=== PATIENT | female | born 1935 | race Caucasian/White ===

== ENCOUNTER 2018-06-19 03:32 | Outpatient (CLI) | payer MEDICARE ==
[~2018-06-19] VITALS: Ht 165.1 cm; Wt 60.8 kg
[2018-06-19] VITALS (10 sets, daily range): BP systolic 105–204; BP diastolic 53–100; BMI 22.3
--- NOTE | ~2018-06-19 | HEMODYNAMI ---
PATIENT:HONORIO OSORIO MEDICAL RECORD: [id number] : 35 LOCATION[facility] [id number] ADMISSION DATE: 06/19/18 Generatedon:06/20/201810:50 Patient name: HONORIO OSORIO Patient #: [id number] SSN: : 1935 Date of study: 06/20/2018 Page: Of Hemodynamic Procedure Report Patient Data Patient Demographics Procedure consent was obtained First Name: HONORIO Gender: Female Last Name: JO : 1935 [facility] Initial: M Age: 82 year(s) Patient #: [id number] Race: Additional ID: [id number] Contact details [address]: [address] [place] [address] State: [place] City: [place] Zip code: [address] Past Medical History Allergies Allergen Reaction Date Comments Reported Amoxicillin 06/19/2018 Other allergy 06/20/2018 Amoxicillin Admission Admission Data Admission Date: 06/19/2018 Admission Time: 5:54 Room #: D.2114 Lab Results Lab Result Date: 06/19/2018 Lab Result Time: 0:00 Biochemistry Name Units Result Min Max BUN mg/dl 26 --(----)-* 7 18 Creatinine mg/dl 1 --(--*-)-- 0.6 1.3 CBC Name Units Result Min Max Hemoglobin g/dl 14.1 --(*---)-- 13.5 17.5 Procedure Procedure Types Cath Procedure PCI Procedure Coronary Stent Coronary Stent Initial Coronary Stent Additional Procedure Description Procedure Date Procedure Date: 06/20/2018 Procedure Start Time: 10:36 Procedure End Time: 10:49 Procedure Staff Name Function Joseph Jaime MD Performing Physician Ritesh Pleitez RT Monitor Zenon Cross RN Nurse Eliza Pena RT Scrub Procedure Data Cath Procedure Fluoroscopy Diagnostic fluoroscopy Total fluoroscopy Time: 2.8 time: 2.8 min min Diagnostic fluoroscopy Total fluoroscopy dose: 296 dose: 296 mGy mGy Contrast Material Contrast Material Type Amount (ml) Isovue 300 44 Entry Location Entry Primary Successful Side Size Upsize Upsize Entry Closure Succes sful Closure Location (Fr) 1 (Fr) 2 (Fr) Remarks Device Remarks Femoral Right 6 Fr Exoseal artery Short Estimated blood loss: 10 ml Procedure Complications No complications Procedure Medications Medication Administration Route Dosage 0.9% NaCl I.V. 100 ml/hr Oxygen etCO2 Nasal cannula 2 l/min Heparin Flush Bag added to field 2 bags (1000units/500ml NS) Lidocaine 2% added to field 20 Benadryl I.V. 50 mg Versed I.V. 1 mg Fentanyl I.V. 50 mcg Heparin Bolus I.V. 4000 units Hemodynamics Rest HGB: 14.1 (g/dl) Heart Rate: 66 (bpm) Snapshots Pre Cath Intra NCS Post Cath Vital Signs Time Heart Resp SPO2 etCO2 NIBP (mmHg) Rhythm Pain Sedation Rate (ipm) (%) (mmHg) Status Level (bpm) 10:22:07 33 10 100 34.8 168/80(129) NSR 0 (11) 10(A) , No pain 10:26:28 39 16 100 34 177/77(141) NSR 0 (11) 10(A) , No pain 10:30:54 37 12 100 34 157/70(131) NSR 0 (11) 10(A) , No pain 10:35:08 71 16 100 34 163/83(142) NSR 0 (11) 10(A) , No pain 10:39:24 74 11 100 36.3 159/80(130) NSR 0 (11) 10(A) , No pain 10:43:40 76 12 100 35.5 149/79(117) NSR 0 (11) 10(A) , No pain 10:47:54 72 9 100 39.3 158/76(130) NSR 0 (11) 10(A) , No pain Medications Time Medication Route Dose Verified Delivered Reason Notes Effectiveness by by 10:26:03 0.9% NaCl I.V. 100 Zenon Zenon Per physician ml/hr Tay Cross RN RN 10:26:14 Oxygen etCO2 2 Zenon Zenon Per physician Nasal l/min Tay Cross cannula RN RN 10:26:31 Heparin Flush added 2 Zenon Zenon used for Bag to bags Tay Cross procedure (1000units/500ml field RN RN NS) 10:26:43 Lidocaine 2% added 20ml Zenon Zenon for local to vial Tay Cross anesthetic field POLANCO RN 10:33:00 Benadryl I.V. 50 mg Zenon Zenon Per physician Tay Cross RN RN 10:34:38 Versed I.V. 1 mg Zenon Zenon for sedation Tay Cross RN, RN 10:34:46 Fentanyl I.V. 50 Zenon Zenon for sedation mcg Tay Cross RN, RN 10:37:48 Heparin Bolus I.V. 4000 Zenon Zenon for units Tay Cross anticoagulation RN channel director Log Time Note 9:40:19 Zenon Cross RN sent for patient. Start room use. 9:43:09 Time tracking: Regular hours (M-F 7:00 - 5:00) 9:43:14 Plan of Care:Hemodynamics will remain stable., Cardiac rhythm will remain stable., Comfort level will be maintained., Respiratory function will remain adequate., Patient/ family verbilizes understanding of procedure., Procedure tolerated without complication., Recovers from procedure without complications.. 10:14:01 Patient received from Med II to CCL 2 Alert and oriented. Tansferred to table in Supine position. 10:14:02 Warm blankets applied, and dinesh hugger turned on for patient comfort. 10:14:02 Correct patient and procedure confirmed by team. 10:14:03 Signed procedure consent form obtained from patient. 10:14:05 ECG and BP/O2 sat monitors applied to patient. 10:20:59 Vital chart was started 10:23:54 Baseline sample Acquired. 10:23:59 Rhythm: sinus rhythm 10:26:03 0.9% NaCl 100 ml/hr I.V. was administered by Zenon Cross RN; Per physician; 10:26:14 Oxygen 2 l/min etCO2 Nasal cannula was administered by Zenon Cross RN; Per physician; 10:26:31 Heparin Flush Bag (1000units/500ml NS) 2 bags added to field was administered by Zenon Cross RN; used for procedure; 10:26:43 Lidocaine 2% 20ml vial added to field was administered by Zenon Cross RN; for local anesthetic; 10:27:38 Full Disclosure recording started 10:28:02 H&P Date Dictated: 06/19/2018 Within 30 days and on chart.. 10:28:03 Pre-procedure instructions explained to patient. 10:28:03 Pre-op teaching completed and patient verbalized understanding. 10:28:07 Family in patients room. 10:28:09 Patient NPO since Midnight. 10:28:20 Patient allergic to Other allergyAmoxicillin 10:28:21 Is the patient allergic to Iodine/contrast media? No. 10:28:22 Is patient on blood thinner?Yes 10:28:24 ACC The patient was administered the following blood thiners within the last 24 hours: ACCPlavix 10:28:26 Patient diabetic? No. 10:28:28 Previous problem with sedation/anesthesia? No ? 10:28:29 Snore? Yes 10:28:30 Sleep apnea? No 10:28:30 Deviated septum? No 10:28:31 Opens mouth fully? Yes 10:28:32 Sticks out tongue? Yes 10:28:34 Airway obstruction? No ? 10:28:37 Dentures? Yes in tight 10:28:39 Pre procedure: right dorsailis pedis pulse 2+ Normal; easily identifiable; not easily obliterated 10:28:42 IV patent on arrival in left forearm with 0.9% NaCl at [facility]. 10:28:47 Lab results completed and on chart. 10:28:49 Right groin area was prepped with chlora-prep and draped in sterile fashion 10:28:49 Alarms reviewed by R. N. 10:28:50 Sharps counted by scrub and verified by R.N. 10:28:56 ACIST Syringe (62261) opened to sterile field. 10:28:56 Bag Decanter () opened to sterile field. 10:28:57 Medline Cath Pack ([id number]) opened to sterile field. 10:28:57 ACIST Hand Control (21314) opened to sterile field. 10:28:58 ACIST Manifold (05768) opened to sterile field. 10:28:59 Tegaderm 4 x 4 (1626W) opened to sterile field. 10:29:01 DIAGNOSTIC WIRE .035 260cm J wire (834378) opened to sterile field. 10:29:20 INFLATOR Merit BasixCompak (VU4584) opened to sterile field. 10:29:20 CHOICE PT Extra Support 182cm wire ([id number]) opened to sterile field. 10:29:20 SHEATH 6FR Converse (ZHM908) opened to sterile field. 10:33:00 Benadryl 50 mg I.V. was administered by Zenon Cross RN; Per physician; :34:00 Physician arrived 10:34:00 --------ALL STOP TIME OUT------ :34:00 Final Timeout: patient, procedure, and site verified with staff and physician. All members of the team are in agreement. 10:34:04 Final Timeout: patient, procedure, and site verified with staff and physician. All members of the team are in agreement. 10:34:06 Right groin site verified by team. 10:34:09 Physical assessment completed. ASA score P 2 - A patient with mild systemic disease as per Joseph Jaime MD. 10:34:12 Sedation plan: IV Moderate Sedation Medication:Versed, Fentanyl 10:34:26 Zero performed for pressure channel P1 10:34:38 Versed 1 mg I.V. was administered by Zenon Cross RN; for sedation; 10:34:46 Fentanyl 50 mcg I.V. was administered by Zenon Cross RN; for sedation; 10:36:46 Procedure started. 10:36:54 Local anesthetic to right femoral artery with Lidocaine 2% by Joseph Jaime MD.INITIAL ACCESS ONLY 10:37:02 A 6 Fr Short sheath was inserted into the Right Femoral artery 10:37:44 GUIDE 6FR HS II catheter ([id number]) opened to sterile field. 10:37:48 Heparin Bolus 4000 units I.V. was administered by Zenon Cross RN; for anticoagulation; 10:37:51 6 Fr HS II guide catheter was inserted over the wire 10:38:56 CHOICE PT ES wire advanced. 10:40:42 Wire advanced across lesion. 10:41:30 Place stent Inflation Number: 1 A DIVINA RX 2.5 x 26 stent ([id number]) was prepped and advanced across the R PDA. The stent was deployed at 11 ARNOLD for 0:10 (min:sec). 10:41:57 Stent catheter was removed intact over wire. 10:42:52 Place stent Inflation Number: 1 A DIVINA RX 3.5 x 15 stent ([id number]) was prepped and advanced across the Mid RCA. The stent was deployed at 11 ARNOLD for 0:10 (min:sec). 10:43:11 Stent catheter was removed intact over wire. 10:43:13 Wire removed. 10:43:19 Guide catheter removed. 10:44:43 EXOSEAL 6Fr (EX600) opened to sterile field. 10:44:51 Sheath removed intact; hemostasis achieved with Exoseal to the Right Femoral artery. 10:44:53 Procedure ended.(Physican Out) 10:45:19 Fluoroscopy time 02.80 minutes. 10:45:23 Flurop Dose total: 296 10:45:23 Fluoroscopy dose: 296 mGy 10:45:25 Contrast amount:Isovue 300 44ml. 10:45:26 Sharps counted by scrub and verified by R.N. 10:45:27 Insertion/operative site no bleeding no hematoma. 10:45:29 Post-op/insertion site Right Femoral artery dressed using a 4 x 4 and Tegaderm. 10:45:33 Post right femoral artery:stable, soft, clean and dry 10:45:34 Post Procedure Pulses reassessed and unchanged 10:45:37 Post-procedure physical assessment completed. ASA score P 2 - A patient with mild systemic disease as per Joseph Jaime MD. 10:45:39 Post procedure rhythm: unchanged. 10:45:44 Estimated blood loss: 10 ml 10:45:45 Post procedure instruction explained to patient.Patient verbalizes understanding. 10:45:45 Patient needs reinforcement of post procedure teaching. 10:45:53 Procedure type changed to Cath procedure, PCI procedure, Coronary Stent, Coronary Stent Initial, Coronary Stent Additional 10:49:20 Procedure and supply charges have been captured, reviewed, submitted and are correct. 10:49:20 Vital chart was stopped 10:49:24 Procedure Complication : No complications 10:49:27 See physician's report for complete and final results. 10:49:29 Report given to PCU. 10:49:31 Patient transfered to PCU with Stretcher. 10:49:33 Procedure ended. 10:49:33 Full Disclosure recording stopped 10:49:36 End room use (Document Last) Intervention Summary Intervention Notes Time ActionType Lesion and Equipment Used Action# Pressure Duration Attributes 10:41:30 Place stent R PDA DIVINA RX 2.5 x 1 11 00:10 26 stent ([id number]) 10:42:52 Place stent Mid RCA DIVINA RX 3.5 x 1 11 00:10 15 stent ([id number]) Device Usage Item Name Manufacture Quantity Catalog Number Hospital Part Current M inimal Lot# / Charge Number Stock Stock Serial# Code ACIST Syringe Acist 1 43038 308043 057832 416902 2 0 (50993) Medical Systems Inc Bag Decanter Microtek 1 2001S 465895 14130 365861 5 (2001S) Medical Inc. Medline Cath Medline 1 [id number] 438082 49419 016528 5 Pack ([id number]) ACIST Hand Acist 1 12711 085987 558023 208350 5 Control Medical (55795) Systems Inc ACIST Manifold Acist 1 75813 546573 906057 770594 5 (65095) Medical Systems Inc Tegaderm 4 x 4 3M 1 1626W 431838 927023 674171 5 (1626W) DIAGNOSTIC [facility] [place] 1 302653 735952 000456 322763 3 0 WIRE .035 260cm J wire (752927) INFLATOR Merit Merit 1 OR8560 807668 656581 175588 1 5 [employer] ([id number]) CHOICE PT [place] 1 [id number] 487522 884926 529786 5 Extra Support Scientific 182cm wire ([id number]) SHEATH 6FR Terumo 1 FIV833 854229 946566 693908 4 0 Converse (OYZ132) GUIDE 6FR HS Medtronic 1 [id number] 239511 80241 884266 1 II catheter ([id number]) DIVINA RX 2.5 x Medtronic 1 [id number] 816260 4175816 626303 5 [id number] 26 stent ([id number]) DIVINA RX 3.5 x Medtronic 1 [id number] 823625 9182900 314503 5 [id number] 15 stent ([id number]) EXOSEAL 6Fr Cardinal 1 EX600 062962 914354 644872 1 0 (EX600) Health Signature Audit [place] Stage Time Signature Unsigned Intra-Procedure 06/20/2018 Ritesh Pleitez 10:50:33 AM RT(R) Signatures Monitor : Ritesh Pleitez RT Signature : Date : Time : [facility] [address] [place] [address]
--- NOTE | ~2018-06-19 | HEMODYNAMI ---
PATIENT:HONORIO OSORIO MEDICAL RECORD: [id number] : 35 [facility] [id number] ADMISSION DATE: 06/19/18 Generatedon:06/19/201812:57 Patient name: HONORIO OSORIO Patient #: [id number] SSN: : 1935 Date of study: 06/19/2018 Page: Of Hemodynamic Procedure Report Patient Data Patient Demographics Procedure consent was obtained First Name: HONORIO Gender: Female Last Name: JO : 1935 Middle Initial: M Age: 82 year(s) Patient #: [id number] Race: Additional ID: [id number] Contact details Address: [address] [place] [address] State: [place] City: [place] Zip code: [address] Past Medical History Allergies Allergen Reaction Date Comments Reported Amoxicillin 06/19/2018 Admission Admission Data Admission Date: 06/19/2018 Admission Time: 5:54 Room #: [facility]8 Lab Results Lab Result Date: 06/19/2018 Lab Result Time: 0:00 Biochemistry Name Units Result Min Max BUN mg/dl 26 --(----)-* 7 18 Creatinine mg/dl 1 --(--*-)-- 0.6 1.3 CBC Name Units Result Min Max Hemoglobin g/dl 14.1 --(*---)-- 13.5 17.5 Procedure Procedure Types Cath Procedure Diagnostic Procedure [facility] w/Coronaries PCI Procedure Coronary Stent Coronary Stent Initial Procedure Description Procedure Date Procedure Date: 06/19/2018 Procedure Start Time: 12:38 Procedure End Time: 12:55 Procedure Staff Name Function Joseph Jaime MD Performing Physician Ritesh Pleitez RT Monitor Mona Goldsmith RT Scrub Janine Heredia RN Nurse Procedure Data Cath Procedure Fluoroscopy Diagnostic fluoroscopy Total fluoroscopy Time: 4.9 time: 4.9 min min Diagnostic fluoroscopy Total fluoroscopy dose: 334 dose: 334 mGy mGy Contrast Material Contrast Material Type Amount (ml) Isovue 300 67 Entry Location Entry Primary Successful Side Size Upsize Upsize Entry Closure Dias ccessful Closure Location (Fr) 1 (Fr) 2 (Fr) Remarks Device Remarks Radial Right 6 Fr Mechanical artery Short Compression Estimated blood loss: 10 ml Diagnostic catheters Device Type Used For End Catheter Placement DIAGNOSTIC [place] 110cm 5 Procedure Fr catheter ([id number]) Procedure Complications No complications Procedure Medications Medication Administration Route Dosage 0.9% NaCl I.V. 100 ml/hr Oxygen etCO2 Nasal cannula 2 l/min Lidocaine 2% added to field 20 Heparin Flush Bag added to field 2 bags (1000units/500ml NS) Radial Cocktail added to field 1 syringe (Verapomil 2mg/Nitro 400mcg/Heparin 1500units) Versed I.V. 2 mg Fentanyl I.V. 50 mcg Versed I.V. 1 mg Fentanyl I.V. 50 mcg Heparin Bolus I.V. 4000 units Hemodynamics Rest HGB: 14.1 (g/dl) Heart Rate: 63 (bpm) Pressure Samples Time Site Value (mmHg) Purpose Heart Use Rate(bpm) 12:39 LV 88/-28,9 Snapshot 64 Snapshots Pre Cath Intra NCS Post Cath Vital Signs Time Heart Resp SPO2 etCO2 NIBP (mmHg) Rhythm Pain Sedation Rate (ipm) (%) (mmHg) Status Level (bpm) 12:22:33 74 16 100 35.5 141/83(123) NSR 0 (11) 10(A) , No pain 12:26:51 63 11 100 32.5 136/70(112) NSR 0 (11) 10(A) , No pain 12:31:09 61 13 99 36.3 126/65(101) NSR 0 (11) 10(A) , No pain 12:35:21 62 12 98 34.8 116/68(96) NSR 0 (11) 9(A) , No pain 12:39:35 67 11 98 36.7 94/51(79) NSR 0 (11) 10(A) , No pain 12:43:41 66 13 98 35.5 95/55(67) NSR 0 (11) 9(A) , No pain 12:47:43 64 14 99 29.8 104/61(83) NSR 0 (11) 9(A) , No pain 12:51:47 66 12 98 36.3 120/70(100) NSR 0 (11) 10(A) , No pain 12:55:56 63 98 37 123/68(103) NSR 0 (11) 10(A) , No pain Medications Time Medication Route Dose Verified Delivered Reason Not es Effectiveness by by 12:21:34 0.9% NaCl I.V. 100 Joseph Janine used for ml/hr Yeni Heredia ribbon blocker 12:21:40 Oxygen etCO2 2 l/min Joseph Janine used for Nasal Yeni Heredia procedure cannula RN 12:21:45 Lidocaine 2% added 20ml Joseph Joseph for local to vial Yeni Jaime MD anesthetic field 12:21:50 Heparin Flush added 2 bags Joseph Joseph used for Bag to Yeni Jaime MD procedure (1000units/500ml field NS) 12:21:58 Radial Cocktail added 1 Joseph Joseph used for (Verapomil to syringe Yeni Jaime MD procedure 2mg/Nitro field 400mcg/Heparin 1500units) 12:31:02 Versed I.V. 2 mg Joseph Janine for sedation Yeni Heredia RN 12:31:09 Fentanyl I.V. 50 mcg Joseph Janine for sedation Yeni Heredia RN 12:40:06 Versed I.V. 1 mg Joseph Janine for sedation Yeni Heredia RN 12:40:10 Fentanyl I.V. 50 mcg Joseph Janine for sedation Yeni Heredia RN 12:42:40 Heparin Bolus I.V. 4000 Joseph Janine for pacheco ified units Yeni Heredia anticoagulation with Dr. SHERRI Jaime Procedure Log Time Note 11:58:59 Signed procedure consent form obtained from patient. 11:59:06 Diagnostic Cath status Elective 11:59:08 Time tracking: Regular hours (M-F 7:00 - 5:00) 11:59:12 Plan of Care:Hemodynamics will remain stable., Cardiac rhythm will remain stable., Comfort level will be maintained., Respiratory function will remain adequate., Patient/ family verbilizes understanding of procedure., Procedure tolerated without complication., Recovers from procedure without complications.. 11:59:39 H&P Date Dictated: 06/19/2018 ER History on chart.. 11:59:42 Ritesh Pleitez RT(R) sent for patient. Start room use. 12:: Lab Result : Creatinine 1 mg/dl 12:: Lab Result : BUN 26 mg/dl 12:: Lab Result : Hemoglobin 14.1 g/dl 12::35 Patient allergic to Amoxicillin 12:11:12 Patient received from ED to CCL 1 Alert and oriented. Tansferred to table in Supine position. 12::19 Warm blankets applied, and dinesh hugger turned on for patient comfort. 12::20 Correct patient and procedure confirmed by team. 12::20 ECG and BP/O2 sat monitors applied to patient. 12::25 Vital chart was started 12::34 0.9% NaCl 100 ml/hr I.V. was administered by Janine Heredia RN; used for procedure; 12::40 Oxygen 2 l/min etCO2 Nasal cannula was administered by Janine Heredia RN; used for procedure; 12::45 Lidocaine 2% 20ml vial added to field was administered by Joseph Jaime MD; for local anesthetic; 12:21:50 Heparin Flush Bag (1000units/500ml NS) 2 bags added to field was administered by Joseph Jaime MD; used for procedure; 12:21:58 Radial Cocktail (Verapomil 2mg/Nitro 400mcg/Heparin 1500units) 1 syringe added to field was administered by Joseph Jaime MD; used for procedure; 12:27:25 Baseline sample Acquired. 12:27:31 Rhythm: sinus rhythm 12:27:48 Full Disclosure recording started 12::49 Pre-procedure instructions explained to patient. 12::49 Pre-op teaching completed and patient verbalized understanding. 12:27:51 Family in waiting room. 12:27:52 Patient NPO since Midnight. 12:27:54 Is the patient allergic to Iodine/contrast media? No. 12:27:56 Is patient on blood thinner?Yes 12::58 ACC The patient was administered the following blood thiners within the last 24 hours: ACCPlavix 12:28:01 Patient diabetic? No. 12:28:04 Previous problem with sedation/anesthesia? No ? 12:28:05 Snore? Yes 12:28:06 Sleep apnea? No 12:28:10 Deviated septum? No 12:28:10 Opens mouth fully? Yes 12:28:11 Sticks out tongue? Yes 12:28:17 Airway obstruction? No ? 12:28:23 Dentures? Yes out 12:29:02 Modified Juanito's test Ulnar < 7 seconds 12:29:04 Patient pain scale 0/10 ?. 12:29:10 IV patent on arrival in left forearm with 0.9% NaCl at [facility]. 12:29:11 Lab results completed and on chart. 12:29:14 Right Radial & Right Groin area was prepped with chlora-prep and draped in sterile fashion 12:29:15 Sharps counted by scrub and verified by R.N. 12:29:15 Alarms reviewed by R. N. 12:29:18 Use device set Radial Dx or PCI 12:29:19 ACIST Syringe (73165) opened to sterile field. 12:29:19 Medline Cath Pack ([id number]) opened to sterile field. 12:29:20 Bag Decanter (2002S) opened to sterile field. 12:29:21 ACIST Hand Control (99714) opened to sterile field. 12:29:21 ACIST Manifold (69702) opened to sterile field. 12:29:22 Tegaderm 4 x 4 (1626W) opened to sterile field. 12:29:23 MBrace Wrist Support (711220025) opened to sterile field. 12:29:24 SHEATH 6FR Slender (55-4392) opened to sterile field. 12:29:24 DIAGNOSTIC WIRE .035 260cm J wire (266722) opened to sterile field. 12:30:00 Zero performed for pressure channel P1 12:30:04 Zero performed for pressure channel P1 12:30:31 Physician arrived 12:: --------ALL STOP TIME OUT------ 12:30:31 Final Timeout: patient, procedure, and site verified with staff and physician. All members of the team are in agreement. 12:30:33 Right Radial & Right Groin site verified by team. 12:30:35 Physical assessment completed. ASA score P 3 - A patient with severe systemic disease as per Joseph Jaime MD. 12:30:37 Sedation plan: IV Moderate Sedation Medication:Versed, Fentanyl 12:31:02 Versed 2 mg I.V. was administered by Janine Heredia RN; for sedation; 12:31:09 Fentanyl 50 mcg I.V. was administered by Janine Heredia RN; for sedation; 12:37:57 Procedure started. 12:38:05 Local anesthetic to right radial artery with Lidocaine 2% by Joseph Jaime MD.INITIAL ACCESS ONLY 12:38:23 A 6 Fr Short sheath was inserted into the Right Radial artery 12:38:29 A DIAGNOSTIC [place] 110cm 5 Fr catheter ([id number]) was advanced over the wire and used for Procedure. 12:38:31 Zero performed for pressure channel P1 12:38:36 Zero performed for pressure channel P1 12:38:42 Zero performed for pressure channel P1 12:38:48 Zero performed for pressure channel P1 12:39:12 Zero performed for pressure channel P1 12:39:36 LV gram done using BEARDEN 12:39:46 Injector settings: Ml/sec: 5, Volume: 15, 12:40:06 Versed 1 mg I.V. was administered by Janine Heredia RN; for sedation; 12:40:10 Fentanyl 50 mcg I.V. was administered by Janine Heredia RN; for sedation; 12:40:12 EF : 55 % 12:40:17 LCA angiography performed. 12:41:10 RCA angiography performed. 12:41:25 Catheter exchanged over wire. 12:41:36 CHOICE PT Extra Support 182cm wire ([id number]) opened to sterile field. 12:41:37 GUIDE 6FR AR 2.0 catheter ([id number]) opened to sterile field. 12:41:37 INFLATOR Merit BasixCompak (SW7410) opened to sterile field. 12:42:40 Heparin Bolus 4000 units I.V. was administered by Janine Heredia RN; for anticoagulation; verified with Dr. Jaime 12:43:02 6 Fr AR 2 guide catheter was inserted over the wire 12:44:31 Guide Catheter removed. unable to cannulate vessel. 12:44:37 GUIDE 6FR XB 3.5 catheter ([id number]) opened to sterile field. 12:44:44 6 Fr XB 3.5 guide catheter was inserted over the wire 12:46:56 CHOICE PT ES wire advanced. 12:46:58 Wire advanced across lesion. 12:47:50 Place stent Inflation Number: 1 A INTEGRITY RX 3.5 x 18 stent ([id number]) was prepped and advanced across the Mid CX. The stent was deployed at 9 ARNOLD for 0:10 (min:sec). 12:48:05 Inflation number: 2 The stent balloon was then re-inflated across the Mid CX to 11 ARNOLD for 0:10 (min:sec). 12:48:27 Stent catheter was removed intact over wire. 12:48:28 Wire removed. 12:48:28 Guide catheter removed. 12:48:33 TR BAND Standard ([id number]) opened to sterile field. 12:48:45 Sheath removed intact; hemostasis achieved with Mechanical Compression to the Right Radial artery. 12:48:47 Procedure ended.(Physican Out) 12:54:13 Fluoroscopy time 04.90 minutes. 12:54:18 Fluoroscopy dose: 334 mGy 12:54:18 Flurop Dose total: 334 12:54:20 Contrast amount:Isovue 300 67ml. 12:54:26 Sharps counted by scrub and verified by R.N. 12:54:28 TR band inflated with 11cc of air. 12:54:29 Insertion/operative site no bleeding no hematoma. 12:54:33 Post right radial artery:stable, soft, clean and dry 12:54:34 Post Procedure Pulses reassessed and unchanged 12:54:46 Post-procedure physical assessment completed. ASA score P 3 - A patient with severe systemic disease as per Joseph Jaime MD. 12:54:56 Post procedure rhythm: unchanged. 12:54:58 Estimated blood loss: 10 ml 12:54:59 Post procedure instruction explained to patient.Patient verbalizes understanding. 12:54:59 Patient needs reinforcement of post procedure teaching. 12:55:06 Procedure type changed to Cath procedure, Diagnostic procedure, LHC, LHC w/Coronaries, PCI procedure, Coronary Stent, Coronary Stent Initial 12:55:33 Procedure and supply charges have been captured, reviewed, submitted and are correct. 12:55:35 Procedure Complication : No complications 12:55:37 Vital chart was stopped 12:55:37 See physician's report for complete and final results. 12:55:38 Report given to Pre/Post Procedure Room. 12:55:40 Patient transfered to Pre/Post Procedure Room with Stretcher. 12:55:42 Procedure ended. 12:55:42 Full Disclosure recording stopped 12:55:45 End room use (Document Last) Intervention Summary Intervention Notes Time ActionType Lesion and Equipment Action# Pressure Duration Attributes Used 12:47:50 Place stent Mid CX INTEGRITY RX 1 9 00:10 3.5 x 18 stent ([id number]) 12:48:05 Reinflate Mid CX INTEGRITY RX 2 11 00:10 stent 3.5 x 18 balloon stent ([id number]) Device Usage Item Name Manufacture Quantity Catalog Number Hospital Part Current Mini mal Lot# / Charge Number Stock Stock Serial# Code ACIST Acist 1 63370 463214 098615 600227 20 Syringe Medical (12894) Systems Inc Medline Cath Medline 1 [id number] 019228 31624 917481 5 Pack ([id number]) Bag Decanter Microtek 1 2001S 959609 91626 578520 5 (2001S) Medical Inc. ACIST Hand Acist 1 76025 662291 477350 030377 5 Control Medical (83779) Systems Inc ACIST Acist 1 81237 407871 024436 288127 5 Manifold Medical (29704) Systems Inc Tegaderm 4 x 3M 1 1626W 837372 904836 456667 5 4 (1626W) MBrace Wrist Advanced 1 140-0250-00 449106 67416 311412 5 Support Vascular (555235216) Dynamics SHEATH 6FR Terumo 1 [id number] 124797 520313 828798 5 Slender (80-1060) DIAGNOSTIC St [place] 1 249915 079932 859708 623385 30 WIRE .035 260cm J wire (311751) DIAGNOSTIC Terumo 1 40-5978 275541 820568 467281 5 [place] 110cm 5 Fr catheter (051521) CHOICE PT Adolphus 1 [id number] 301958 972883 845003 5 Extra Scientific Support 182cm wire ([id number]) GUIDE 6FR AR Medtronic 1 [id number] 756171 02430 158121 1 2.0 catheter (OE4MG56) INFLATOR Merit 1 HX9043 833807 373922 470517 15 TVDeck Medical BasixCompak (JO0819) GUIDE 6FR XB Cardinal 1 [id number] 744274 347673 396961 2 3.5 catheter Health (18839164) INTEGRITY RX Medtronic 1 [id number] 388627 733401 542481 5 [id number] 3.5 x 18 stent ([id number]) TR BAND Terumo 1 [id number] 470870 819050 724526 40 Standard ([id number]) Signature Audit [place] Stage Time Signature Unsigned Intra-Procedure 06/19/2018 Ritesh Pleitez 12:57:19 PM RT(R) Signatures Monitor : Ritesh Pleitez RT Signature : Date : Time : [place] [id number] [place] [address]
[~2018-06-19 03:32] MED LIST: BAYER CHEWABLE81 MG PO; COZAAR100 MG PO; HYDROCODONE-APA1 TAB PO; LEVAQUIN500 MG PO; NEURONTIN 300300 MG PO; NORVASC5 MG; NORVASC5 MG PO; PROBIOTIC1 EAC1 PO; SYNTHROID75 MCG PO; TOPROL XL50 MG PO
[2018-06-19] MEDS ORDERED: ASPIRIN81 MG PO (03:40)
[2018-06-19] MEDS ORDERED: OXYBUTYNIN CHLOR5 MG PO (03:40)
[2018-06-19 04:00] LABS: APPEARANCE CLEAR (CLEAR); BILIRUBIN NEGATIVE (NEGATIVE); COLOR STRAW (YELLOW); GLUCOSE NEGATIVE (NEGATIVE); KETONE NEGATIVE (NEGATIVE); NITRITE NEGATIVE (NEGATIVE); PROTEIN NEGATIVE (NEGATIVE); UROBILINOGEN NORMAL (NORMAL)
[2018-06-19 04:14] LABS: BASOPHILS 0.5 % (0-2); EOSINOPHILS 1.2 % (0-7); HEMATOCRIT 40.3 % (36.0-48.0); HEMOGLOBIN 14.1 g/dL (12-16); IMMATURE GRANULOCYTES 0.3 % (0-5); LYMPHOCYTES 16.6 % (15-50); MCH 34.1 pg (26.0-34.0); MCV 97.6 fL (80.0-100.0); MEAN PLATELET VOLUME 12.7 fL (7.4-10.4); MONOCYTES 10.6 % (2-11); NEUTROPHILS 70.8 % (40-80); PLATELET COUNT 165 10x3/uL (130-400); RBC 4.13 10x6/uL (4.00-5.40); RDW 13.6 % (11.5-14.5); WBC 6.5 10x3/uL (4.8-10.8)
[2018-06-19 04:30] LABS: ALBUMIN 3.7 g/dL (3.4-5.0); ALKALINE PHOSPHATASE 88 U/L (46-116); ALT (SGPT) 28 U/L (10-68); BILIRUBIN - TOTAL 0.66 mg/dL (0.2-1.3); CALC OSMOLALITY 280 mosm/kg (275-300); CALCIUM 8.8 mg/dL (8.5-10.1); CARBON DIOXIDE 27.4 mmol/L (21.0-32.0); CHLORIDE - SERUM 102 mmol/L (98-107); GLUCOSE 104 mg/dL (74-106); PROTEIN - SERUM 6.9 g/dL (6.4-8.2); SODIUM 138 mmol/L (136-145); UREA NITROGEN 26 mg/dL (7-18); eGFR NON AFRICAN AMERICAN 56 mL/min (90-120)
--- NOTE | 2018-06-19 04:44 | NUR ---
PT AMBULATED TO RESTROOM WITH ASSISTANCE. PT FAMILY AT BEDSIDE.
[2018-06-19 04:47] LABS: AMYLASE - SERUM 37 U/L (25-115); CKMB 1.3 U/L (0.0-3.6); CREATINE KINASE 98 UL (21-215); LIPASE 141 U/L (73-393)
[2018-06-19 04:49] LABS: TROPONIN-I 0.067 ng/mL (0.000-0.060)
--- NOTE | 2018-06-19 05:30 | NUR ---
RN ASSISTED PT TO RESTROOM.
--- NOTE | 2018-06-19 07:09 | NUR ---
REPORT GIVEN TO SHERRI ERAZO
[2018-06-19 07:14] LABS: CKMB 1.8 U/L (0.0-3.6); CREATINE KINASE 63 UL (21-215)
[2018-06-19 07:15] LABS: TROPONIN-I 0.129 ng/mL (0.000-0.060)
--- NOTE | 2018-06-19 07:20 | NUR ---
HAND-OFF REPORT RECEIVED FROM OFF GOING NURSE SHERRI BOSE USING SBAR COMMUNICATION. PT ALERT AND ORIENTED X4. NO SIGNS OF DISTRESS. RESPIRATIONS EVEN AND UNLABORED. FAMILY PRESENT AT THE BEDSIDE. CALL LIGHT IN REACH. PT DENIES ANY NEEDS AT THIS TIME. PT AWARE SHE IS BEING ADMITTED TO [facility], AWAITING BED ASSIGNMENT. AHA BREAKFAST TRAY PROVIDED PER DIETARY ORDERS. CALL LIGHT IN REACH. WILL CONTINUE TO MONITOR.
--- NOTE | 2018-06-19 07:52 | NUR ---
DR. VELASQUEZ NOTIFIED OF ORDERED CONSULT AT THIS TIME BY ED FOUNDRY HELPER.
--- NOTE | 2018-06-19 10:29 | NUR ---
PACEMAKER INTERROGATED BY NURSE AT THE BEDSIDE ORDERED PER DR. VELASQUEZ.
--- NOTE | 2018-06-19 13:15 | NUR ---
2L NC, NO RESP DISTRESS. RIGHT WRIST TR BAND CDI, NO BLEEDING OR HEMATOMA NOTED. NO C/O PAIN OR NAUSEA. VSS. FAMILY AT BEDSIDE, CALL LIGHT WITHIN REACH.
--- NOTE | 2018-06-19 13:29 | CN ---
PATIENT NAME:HONORIO WHITAKER MEDICAL RECORD: [id number] : 35 LOCATION:[facility]E08- ADMIT DATE: 06/19/18 ACCOUNT: [id number] CONSULTING PHYSICIAN: RANDALL VELASQUEZ MD REFERRING PHYSICIAN: HAZEL MORALES MD DATE OF CONSULTATION: 06/19/2018 CARDIOLOGY CONSULTATION DIAGNOSES: 1. Elevated troponin. 2. Unstable angina. 3. Sick sinus syndrome, status post pacemaker. HISTORY OF PRESENT ILLNESS: Mrs. Whitaker has not had a history of ischemic heart disease. She is followed by Dr. Harden for a pacemaker that was placed in 2013, which she has had no problems with. She had acute shortness of breath that awoke her along with chest pressure this morning. Her troponin is elevated. Her EKG has ST-T abnormalities in the lateral leads. PHYSICAL EXAMINATION: GENERAL APPEARANCE: Well-nourished, well-developed, appears stated age. Level of distress, comfortable. PSYCHIATRIC: Mental status, alert, normal affect. Orientation, oriented to time, place and person. EYES: Lids and conjunctiva, noninjected. No discharge, no pallor. ENT: Lips, teeth, gums, normal dentition. Oropharynx, no cyanosis, no pallor. NECK: Carotid arteries, bilateral normal upstroke, no bruits, no thrills. JUGULAR VEINS: No jugular venous pressure or distention. CERVICAL LYMPH NODES: Nontender, nonenlarged. THYROID: Not enlarged. Nontender. No nodules. LUNGS: Respiratory effort, unlabored. CHEST: Normal curvature. No thoracic deformity. No chest wall tenderness. Percussion, resonant. Auscultation, clear. No wheezes, no rales, no rhonchi. CARDIOVASCULAR: Precordial exam, nondisplaced. No heaves or pericardial thrills. Rate and rhythm, regular. Heart sounds, normal S1, normal S2. No S3, no gallop, no rub. Systolic murmur, not heard. Diastolic murmur, not heard. EXTREMITIES: No cyanosis, no edema. Peripheral pulses, full and equal in all extremities, except as noted. No bruits appreciated. ABDOMEN: Soft, nondistended. Normal aorta. No bruit. Nontender. No masses. Liver, nontender, no hepatomegaly. Spleen, nontender, no splenomegaly. MUSCULOSKELETAL: No joint tenderness. No joint swelling. No erythema. NEUROLOGICAL: Normal gait, normal strength, normal tone. SKIN: Warm and dry. OVERALL IMPRESSION: Acute shortness of breath, chest pain with elevated troponin, most likely she does have hemodynamically significant coronary artery disease. We will proceed with coronary angiography. Further care depends upon the findings of the angiography. TRANSINT:[id number] Voice Confirmation ID: [id number] DOCUMENT ID: [id number] CONSULT REPORT [id number] HONORIO WHITAKER, RANDALL GRAYSON at 1329 CC: [id number] DICTATION DATE: 06/19/18 0854 DISABILITY COUNSELOR: 06/19/18 0908 ADM IN [facility] [address] [place] [address]
--- NOTE | 2018-06-19 13:29 | EC ---
PATIENT:HONORIO OSORIO DATE OF SERVICE: 06/19/18 SEX: F MEDICAL RECORD: [id number] DATE OF : 35 LOCATION:[place] [address] AGE OF PATIENT: 82 ADMISSION DATE: 06/19/18 REFERRING PHYSICIAN: INTERPRETING PHYSICIAN: RANDALL JAIME MD ECHOCARDIOGRAM REPORT ECHO CHARGES 4 ECHO COMPLETE Date: 06/19/18 CLINICAL DIAGNOSIS: CHEST PAIN HX PACEMAKER ECHOCARDIOGRAPHIC MEASUREMENTS (adult normal given) AC root (d.<3.7cm) 3.2 cm LV Septum d (<1.2 cm> 1.1 cm Valve Excursion 1.5 cm LV Septum (systole) 1.2 cm Left Atria (s.<4.0cm> 3.6 cm LVPW d(<1.2cm) 1.2 cm RV (d.<2.3cm) 3.5 cm LVPW (sytole) 1.6 cm LV diastole(<5.6CM) 5.1 cm MV E-F(>70mm/sec) cm LV systole 4.0 cm LVOT Diameter 1.7 cm MV exc.(>10mm) 1.6 cm Est.ejection fraction (50-75%) % DOPPLER: LVIT cm/sec A 69.0 cm/sec E 76.0 cm/sec LA cm/sec RVSP 29 mmHg LVOT 75 cm/sec AOP1/2T m/s Asc. Ao 108 cm/sec RVOT 58 cm/sec RA cm/sec PA 77 cm/sec AV Gradient Peak 4.69 mmHg AV Mean 2.56 mmHg AV Area 1.7 cm MV Gradient Peak 2.21 mmHg MV Mean 1.00 mmHg MV Area cm COMMENTS: Service Delivery Management Consultant: Daphne PATEL Personnel Research Scientist: 1 Dr. Jaime TAPE# PACS Pericardial Effusion N DATE OF SERVICE: 06/19/2018 ECHOCARDIOGRAM DATE OF SERVICE: 06/19/2018 FINDINGS: 1. Left ventricular chamber size is within normal limits. Left ventricular systolic function is normal. Overall ejection fraction estimated at 55%. 2. Left atrium, right atrium, and right ventricle chamber sizes are within ECHOCARDIOGRAM REPORT [id number] HONORIO OSORIO normal limits. 3. Valvular structures have normal structure and motion. 4. Doppler interrogation reveals mild mitral regurgitation, mild tricuspid regurgitation. No other valvular insufficiency or stenosis. Pulmonary systolic pressure is estimated at 29 mmHg. 5. No evidence of pericardial effusion or left ventricular thrombus. TRANSINT:[id number] Voice Confirmation ID: [id number] DOCUMENT ID: [id number] RANDALL JAIME MD at 1329 CC: [id number] DICTATION DATE: 06/19/18 1232 DIRECTOR APPAREL: 06/19/18 1309 ADM IN [place] [address] [place] [address]
--- NOTE | 2018-06-19 13:45 | NUR ---
VOIDED 250CC ONTO BEDPAN. RIGHT WRIST TR BAND CDI, NO BLEEDING OR HEMATOMA NOTED. SIPPING ON DRINK WITH NO C/O NAUSEA. VSS. WILL CONTINUE TO MONITOR.
--- NOTE | 2018-06-19 14:00 | NUR ---
SIPPING ON DRINK AND EATING SANDWICH WITH NO C/O NAUSEA. RIGHT WRIST TR BAND CDI, NO BLEEDING OR HEMATOMA NOTED. DENIES ANY PAIN OR NEEDS. VSS. CALL LIGHT WITHIN REACH.
--- NOTE | 2018-06-19 14:30 | NUR ---
HEMATOMA NOTED TO TR BAND, PRESSURE HELD TO SITE. TR BAND REPOSITIONED AND 15CC OF AIR PLACED BACK INTO BAND. VSS. WILL CONTINUE TO MONITOR CLOSELY.
--- NOTE | 2018-06-19 15:00 | NUR ---
RIGHT WRIST TR BAND CDI, NO BLEEDING OR HEMATOMA NOTED. RESTING COMFORTABLY WITH EYES CLOSED. DENIES ANY NEEDS. VSS. WILL CONTINUE TO MONITOR.
--- NOTE | 2018-06-19 16:00 | NUR ---
REPORT CALLED TO SHERRI ARMENTA ON MED 2.
--- NOTE | 2018-06-19 16:19 | NUR ---
3CC OF AIR REMOVED FROM TR BAND WITH NO BLEEDING NOTED. VSS. WILL CONTINUE TO MONITOR.
--- NOTE | 2018-06-19 16:35 | NUR ---
3CC OF AIR REMOVED FROM TR BAND WITH NO BLEEDING NOTED.
--- NOTE | 2018-06-19 16:40 | NUR ---
TRANSFERRED VIA BED TO ROOM 2114.
--- NOTE | 2018-06-19 17:00 | NUR ---
ARRIVE TO ROOM VIA STRETCHER FROM AIRPORT SCREENER HOLDING. REPORT FROM SHERRI FLORES. PATIENT ALERT AND ORIENTED X4. TRANSFER FROM STRETCHER TO BED. RT WRIST TR BAND REPORT 6mL AIR DEFLATED. RT WRIST TR BAND BLEEDING. INFLATE TR BAND 1ml AIR. HEMATOMA MARKED ON RT ARM. BP-105/53, HR-63 SINUS RHYTHM WITH PACED BEATS, O2-100% 2L NC. CONTINUE ADMISSION PROCESS. CONTINUE PLAN OF CARE AND SAFETY PRECAUTIONS.
--- NOTE | 2018-06-19 18:37 | NUR ---
DEFLATE TR BAND 2mL AIR. REMAINS FREE FROM BLEEDING. PASS ON IN REPORT.
--- NOTE | 2018-06-19 19:21 | NUR ---
RECIEVED RESTING IN BED WITH EYES CLOSED. EASILY AROUSES WITH VERBAL STIMULI. ORIENTED X4. FLUIDS OFFERED AND ACCEPTED. C/O BEING TIRED. TR BAND IN PLACE WITH DRIED BLOOD UNDER AND AROUND BAND. OFF GOING REPORTED STILL BLEEDINDING WHEN ATTEMPTED TO DEFLATE. O2@2 LITERS PER NC. NS AT KVO. DENIES ANT NEEDS OR PAIN AT THIS TIME.
[2018-06-20] VITALS: BP 132/59
--- NOTE | 2018-06-20 00:25 | NUR ---
TR BAND REMOVED FROM RIGH WRIST. NO BLEEDING OBSERVED. SITE CLEANSED OF DRIED BLOOD AND BANDAIDE APPLIED. CONT TO HAVE PURPLE DISCOLORATION AND HARD AREA TO SITE.
[2018-06-20 04:00] VITALS: BP 103/71
[2018-06-20 06:01] LABS: BASOPHILS 0.4 % (0-2); EOSINOPHILS 2.7 % (0-7); HEMATOCRIT 35.7 % (36.0-48.0); IMMATURE GRANULOCYTES 0.2 % (0-5); LYMPHOCYTES 24.7 % (15-50); MCH 32.9 pg (26.0-34.0); MCHC 33.6 g/dL (31.0-37.0); MCV 97.8 fL (80.0-100.0); MEAN PLATELET VOLUME 12.6 fL (7.4-10.4); MONOCYTES 13.3 % (2-11); NEUTROPHILS 58.7 % (40-80); PLATELET COUNT 140 10x3/uL (130-400); RBC 3.65 10x6/uL (4.00-5.40); RDW 13.8 % (11.5-14.5); WBC 4.9 10x3/uL (4.8-10.8)
[2018-06-20 06:28] LABS: CARBON DIOXIDE 27.5 mmol/L (21.0-32.0); CHLORIDE - SERUM 108 mmol/L (98-107); CHOL - HDL RATIO 2.3 ratio (2.3-4.1); CHOLESTEROL, TOTAL 127 mg/dL (0-200); GLUCOSE 82 mg/dL (74-106); HDL CHOLESTEROL 55 mg/dL (32-96); LDL CHOLESTEROL 62 mg/dL (0-100); LDL-HDL RATIO 1.1 ratio (1.5-3.5); POTASSIUM - SERUM 3.9 mmol/L (3.5-5.1); SODIUM 141 mmol/L (136-145); TRIGLYCERIDE 51 mg/dL (30-200)
[2018-06-20 06:34] LABS: CALC OSMOLALITY 280 mosm/kg (275-300); CREATININE - SERUM 0.6 mg/dL (0.6-1.3); UREA NITROGEN 16 mg/dL (7-18); eGFR NON AFRICAN AMERICAN > 90 mL/min (90-120)
[2018-06-20 07:55] VITALS: BP 157/74
--- NOTE | 2018-06-20 10:10 | NUR ---
CONSENTS SIGNED. LEAVING FOR CRATE TIER BY BED.
[2018-06-20 12:54] VITALS: Ht 165.1 cm; Wt 60.8 kg
--- NOTE | 2018-06-20 14:02 | NUR ---
BED REST UP. GROIN STABLE.
[2018-06-20] MEDS ORDERED: PRAVACHOL20 MG PO (14:43)
[2018-06-20] MEDS ORDERED: PLAVIX75 MG PO (14:43)
[2018-06-20] MEDS ORDERED: BETAPACE 80 MG80 MG PO (14:43)
--- NOTE | 2018-06-20 15:30 | NUR ---
IV AND TELEMETRY DCD. DC PLANS GIVEN. UNDERSTANDING VOICED. ESCORTED TO CAR BY W/C.
--- NOTE | 2018-06-20 16:39 | OP ---
PATIENT NAME: HONORIO OSORIO MEDICAL RECORD: [id number] :35 LOCATION:D.M2 D.2114 ADMISSION DATE:06/19/18 SURGEON: RANDALL VELASQUEZ MD DATE OF OPERATION: 06/20/2018 PROCEDURES: 1. PTCA stent RCA and PDA. 2. Selective coronary angiography. PROCEDURE IN DETAIL: After informed consent was obtained and after a detailed description of risks, benefits as well as alternative therapies, the patient elected to proceed with angiogram and angioplasty. The right femoral area was prepped and draped in normal sterile fashion. The right femoral artery was cannulated via modified Seldinger technique with placement of 6-[place] sheath. All catheters exchanged through this sheath. FINDINGS: The right coronary has 80% stenosis. PDA has a 90% stenosis. PDA was addressed with a 2.5 x 26 mm Zhang. RCA with a 3.5 x 15 mm [place]. Result was 0% residual stenosis. OVERALL IMPRESSION: Successful PTCA stent of the RCA and PDA going from 80% to 90% initial stenosis to 0% residual. TRANSINT:[id number] Voice Confirmation ID: [id number] DOCUMENT ID: [id number] RANDALL VELASQUEZ MD at 1639 CC: [id number] DICTATION DATE: 06/20/18 1049 NOCTURNIST: 06/20/18 1356 DIS IN 06/20/18 [facility] [address] [place] [address]
--- NOTE | 2018-06-20 16:39 | OP ---
PATIENT NAME: HONORIO OSORIO MEDICAL RECORD: [id number] :35 LOCATION:D.M2 D.2114 ADMISSION DATE:06/19/18 SURGEON: RANDALL VELASQUEZ MD DATE OF OPERATION: 06/19/2018 DATE OF SERVICE: 06/19/2018 PROCEDURES: 1. PTCA stent left circumflex. 2. Left heart catheterization. 3. Selective coronary angiography. 4. Left ventriculogram. INDICATION: Angina and coronary artery disease. PROCEDURE IN DETAIL: After informed consent was obtained and after a detailed description of risks, benefits as well as alternative therapies, the patient elected to proceed with angiogram and angioplasty. The right femoral area was prepped and draped in normal sterile fashion. Right femoral artery was cannulated via modified Seldinger technique with placement of 6-Kiswahili sheath. All catheters exchanged through this sheath. FINDINGS: The left ventriculogram was performed in standard 30-degree BEARDEN view reveals preserved cardiac wall motion throughout all segments. Overall ejection fraction 50%. SELECTIVE CORONARY ANGIOGRAPHY: 1. Left main is with no significant angiographic disease. 2. Left anterior descending has severe diffuse disease throughout the LAD and diagonal. 3. Left circumflex has 80% to 90% stenosis in the mid vessel. 4. Right coronary artery has 80% to 90% stenosis in the mid vessel as well as the PDA. PTCA STENT OF THE LEFT CIRCUMFLEX: The stent used was a 3.5 x 18 mm Integrity. Result was 0% residual stenosis. OVERALL IMPRESSION: Successful percutaneous transluminal coronary angioplasty stent of the left circumflex. PLAN: Percutaneous transluminal coronary angioplasty stent to right coronary artery in the a.m. and left anterior descending in the near future as an outpatient. TRANSINT:[id number] Voice Confirmation ID: [id number] DOCUMENT ID: [id number] RANDALL VELASQUEZ MD at 1639 CC: [id number] DICTATION DATE: 06/19/18 1255 EMBROIDERY PATTERNMAKER: 06/19/18 1351 DIS IN 06/20/18 [place] [id number]
--- NOTE | 2018-06-20 17:06 | MORECARE ---
CASE MANAGEMENT DISCHARGE SUMMARY PATIENT: HONORIO OSORIO UNIT: [id number] ADM DATE: 06/19/18 AGE: 82 : 35 SEX: F ROOM/BED: D.2114 AUTHOR: LIO PEREYRA PHYSICIAN: REFERRING PHYSICIAN: HAZEL MORALES MD DATE OF SERVICE: 06/20/18 Discharge Plan Patient Name: [facility]ONORIO OSORIO [facility] [facility] 1935 Planned Disposition: Home Anticipated Discharge Date: 06/20/18 Discharge Date: 06/20/2018 Expected LOS: 1 Initial Reviewer: [email or web address] Initial Review Date: 06/20/2018 Generated: 06/20/18 6:06 pm Coverage Notice Reviewer: [email or web address] Darcie Kang Notice Issued Date-Time: 06/19/2018 9:12 Notice Type: Medicare Outpatient Observation Notice Notice Delivered To: Patient 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 [address] [place] [address] END OF REPORT
[2018-06-27] MEDS ORDERED: VITAMIN E200 UNI1 PO (09:28)
== END 2018-06-20 15:30 | disposition home or self-care (01) ==
LOC: OBSVTIME → D.OPS 03:32 → D.ER 03:32 → D.EDHOLD 05:54 → D.M2 05:54 → OBSVTIME 05:54 → D.ER 05:54 → D.EDHOLD 05:54 → EDSTATUS 14:18 → D.EDHOLD 16:40 → D.M2 16:40 → D.OPS 06-20 15:30 → D.M2 06-20 15:30
PROVIDERS: Family Medicine; Internal Medicine Nephrology
DX: I25.110 Atherosclerotic heart disease of native coronary artery with unstable angina pectoris (principal); I49.5 Sick sinus syndrome; Z95.0 Presence of cardiac pacemaker; Z01.812 Encounter for preprocedural laboratory examination
CPT/HCPCS: 92928; 93458; C9600; C9601

== ENCOUNTER → 2018-06-27 09:09 | Outpatient (CLI) | payer MEDICARE ==
[~2018-06-27] VITALS: Ht 165.1 cm; Wt 61.4 kg
--- NOTE | ~2018-06-27 | HEMODYNAMI ---
PATIENT:HONORIO OSORIO MEDICAL RECORD: [id number] : 35 LOCATION:[facility] ADMISSION DATE: 06/27/18 Generatedon:06/27/201814:06 Patient name: HONORIO OSORIO Patient #: [id number] SSN: : 1935 Date of study: 06/27/2018 Page: Of Hemodynamic Procedure Report Patient Data Patient Demographics Procedure consent was obtained First Name: HONORIO Gender: Female Last Name: JO : 1935 Middle Initial: M Age: 82 year(s) Patient #: [id number] Race: Additional ID: [id number] Contact details [address]: [address] [place] [address] State: [place] City: [place] Zip code: [address] Past Medical History Allergies Allergen Reaction Date Comments Reported Amoxicillin 06/19/2018 Other 06/20/2018 Amoxicillin allergy Other 06/27/2018 PCN, allergy Amoxicillin,Amelodipine, Admission Admission Data Admission Date: 06/27/2018 Admission Time: 9:09 Procedure Procedure Types Cath Procedure Diagnostic Procedure Sedation Charges Moderate Sedation up to 15 minutes PCI Procedure Coronary Stent Coronary Stent Initial x2 Procedure Description Procedure Date Procedure Date: 06/27/2018 Procedure Start Time: 13:44 Procedure End Time: 14:02 Procedure Staff Name Function Eliza Pena RT Scrub Lacho Franco RN Nurse Joseph Jaime MD Performing Physician Ritesh Pleitez RT Monitor Procedure Data Cath Procedure Fluoroscopy Diagnostic fluoroscopy Total fluoroscopy Time: 4.9 time: 4.9 min min Diagnostic fluoroscopy Total fluoroscopy dose: dose: 181.39 mGy 181.39 mGy Contrast Material Contrast Material Type Amount (ml) Isovue 300 74 Entry Location Entry Primary Successful Side Size Upsize Upsize Entry Closure Succes sful Closure Location (Fr) 1 (Fr) 2 (Fr) Remarks Device Remarks Femoral Left 6 Fr Exoseal artery Short Estimated blood loss: 10 ml Procedure Complications No complications Procedure Medications Medication Administration Route Dosage Oxygen etCO2 Nasal cannula 2 l/min Lidocaine 2% added to field 20 Heparin Flush Bag added to field 2 bags (1000units/500ml NS) 0.9% NaCl I.V. 100 ml/hr Versed I.V. 1 mg Fentanyl I.V. 50 mcg Heparin Bolus I.V. 4000 units Versed I.V. 1 mg Fentanyl I.V. 50 mcg Hemodynamics Rest Heart Rate: 60 (bpm) Snapshots Pre Cath Intra NCS Post Cath Vital Signs Time Heart Resp SPO2 etCO2 NIBP (mmHg) Rhythm Pain Sedation Rate (ipm) (%) (mmHg) Status Level (bpm) 13:34:11 63 19 99 0 160/101(145) NSR 0 (11) 10(A) , No pain 13:38:39 60 16 100 2.9 163/77(133) NSR 0 (11) 10(A) , No pain 13:43:03 60 13 100 2.2 150/79(130) NSR 0 (11) 10(A) , No pain 13:47:28 58 15 98 2.9 153/75(134) NSR 0 (11) 9(A) , No pain 13:51:54 61 14 99 2.9 151/75(127) NSR 0 (11) 9(A) , No pain 13:56:18 60 14 98 2.2 152/77(132) NSR 0 (11) 9(A) , No pain 14:00:44 60 16 99 2.9 164/77(134) NSR 0 (11) 10(A) , No pain Medications Time Medication Route Dose Verified Delivered Reason Notes Effectiveness by by 13:35:22 Oxygen etCO2 2 Joseph Monk used for Nasal l/min Yeni Franco RN procedure cannula 13:35:30 Lidocaine 2% added 20ml Joseph Ruiz for local to vial Yeni Jaime MD anesthetic field 13:35:54 Heparin Flush added 2 Joseph Ruiz used for Bag to bags Yeni Jaime MD procedure (1000units/500ml field NS) 13:36:04 0.9% NaCl I.V. 100 Josephvenus Mikeie Per physician ml/hr Yeni Franco RN 13:42:55 Versed I.V. 1 mg Joseph Monk for sedation Yeni Franco RN 13:43:01 Fentanyl I.V. 50 Joseph Mikeie for sedation mcg Yeni Franco RN 13:45:05 Heparin Bolus I.V. 4000 Joseph Monk for verif ied units Yeni Franco RN anticoagulation with dr jaime 13:48:26 Versed I.V. 1 mg Joseph Monk for sedation Yeni Franco RN 13:48:29 Fentanyl I.V. 50 Joseph Monk for sedation mcg Yeni Franco RN Procedure Log Time Note 13:12:27 Time tracking: Regular hours (M-F 7:00 - 5:00) 13:12:31 Plan of Care:Hemodynamics will remain stable., Cardiac rhythm will remain stable., Comfort level will be maintained., Respiratory function will remain adequate., Patient/ family verbilizes understanding of procedure., Procedure tolerated without complication., Recovers from procedure without complications.. 13:13:25 Procedure type changed to Cath procedure, Diagnostic procedure, Sedation Charges, Moderate Sedation up to 15 minutes, PCI procedure, Coronary Stent, Coronary Stent Initial x2 13:17:24 Ritesh Pleitez RT(R) sent for patient. Start room use. 13:23:36 Warm blankets applied, and dinesh hugger turned on for patient comfort. 13:23:36 Patient received from Pre/Post Procedure Room to CCL 3 Alert and oriented. Tansferred to table in Supine position. 13:23:37 Correct patient and procedure confirmed by team. 13:23:38 Signed procedure consent form obtained from patient. 13:23:39 ECG and BP/O2 sat monitors applied to patient. 13:23:40 Full Disclosure recording started 13:32:56 Vital chart was started 13:35:22 Oxygen 2 l/min etCO2 Nasal cannula was administered by Lacho Franco RN; used for procedure; 13:35:30 Lidocaine 2% 20ml vial added to field was administered by Joseph Jaime MD; for local anesthetic; 13:35:54 Heparin Flush Bag (1000units/500ml NS) 2 bags added to field was administered by Joseph Jaime MD; used for procedure; 13:36:04 0.9% NaCl 100 ml/hr I.V. was administered by Lacho Franco RN; Per physician; 13:38:40 Baseline sample Acquired. 13:38:53 Rhythm: sinus rhythm 13:39:05 H&P Date Dictated: 06/27/2018 Within 30 days and on chart., H&P Addendum completed by physician on day of procedure. (MUST COMPLETE FOR ALL OUTPATIENTS). 13:39:07 Pre-op teaching completed and patient verbalized understanding. 13:39:07 Pre-procedure instructions explained to patient. 13:39:08 Family in waiting room. 13:39:10 Patient NPO since Midnight. 13:39:37 Patient allergic to Other allergyPCN, Amoxicillin,Amelodipine, 13:39:39 Is the patient allergic to Iodine/contrast media? No. 13:39:40 Is patient on blood thinner?Yes 13:39:42 ACC The patient was administered the following blood thiners within the last 24 hours: ACCAspirin, ACCPlavix 13:39:43 Patient diabetic? No. 13:39:46 Previous problem with sedation/anesthesia? No ? 13:39:48 Snore? No 13:39:49 Sleep apnea? No 13:39:50 Deviated septum? No 13:39:51 Opens mouth fully? Yes 13:39:52 Sticks out tongue? Yes 13:39:53 Airway obstruction? No ? 13:39:56 Dentures? Yes in tight 13:40:00 Pre procedure: left dorsailis pedis pulse 2+ Normal; easily identifiable; not easily obliterated 13:40:01 Patient pain scale 0/10 ?. 13:40:07 IV patent on arrival in left forearm with 0.9% NaCl at [facility]. 13:40:39 Lab results completed and on chart. 13:40:41 Left groin area was prepped with chlora-prep and draped in sterile fashion 13:40:42 Sharps counted by scrub and verified by R.N. 13:40:42 Alarms reviewed by R. N. 13:40:45 Bag Decanter (2002S) opened to sterile field. 13:40:45 ACIST Syringe (10166) opened to sterile field. 13:40:46 ACIST Hand Control (03237) opened to sterile field. 13:40:46 Medline Cath Pack ([id number]) opened to sterile field. 13:40:47 DIAGNOSTIC Multipack 5Fr catheter set ([id number]) opened to sterile field. 13:40:47 ACIST Manifold (41845) opened to sterile field. 13:40:48 Tegaderm 4 x 4 (1626W) opened to sterile field. 13:40:49 DIAGNOSTIC WIRE .035 260cm J wire (063401) opened to sterile field. 13:41:07 GUIDE 6FR XBLAD 3.5 catheter ([id number]) opened to sterile field. 13:41:07 INFLATOR Merit BasixCompak (EM8944) opened to sterile field. 13:41:08 SHEATH 6FR [place] (NXD042) opened to sterile field. 13:41:14 --------ALL STOP TIME OUT------ 13:41:14 Physician arrived 13:41:15 Final Timeout: patient, procedure, and site verified with staff and physician. All members of the team are in agreement. 13:41:17 Left groin site verified by team. 13:41:19 Physical assessment completed. ASA score P 2 - A patient with mild systemic disease as per Joseph Jaime MD. 13:41:22 Sedation plan: IV Moderate Sedation Medication:Versed, Fentanyl 13:42:55 Versed 1 mg I.V. was administered by Lacho Franco RN; for sedation; 13:43:01 Fentanyl 50 mcg I.V. was administered by Lacho Franco RN; for sedation; 13:43:33 CHOICE PT Extra Support 182cm wire ([id number]) opened to sterile field. 13:44:10 Zero performed for pressure channel P1 13:44:22 Procedure started. 13:44:27 Local anesthetic to left femerol artery with Lidocaine 2% by Joseph Jaime MD.INITIAL ACCESS ONLY 13:44:33 A 6 Fr Short sheath was inserted into the Left Femoral artery 13:44:40 6 Fr xblad 3.5 guide catheter was inserted over the wire 13:44:44 choice pt es wire advanced. 13:45:05 Heparin Bolus 4000 units I.V. was administered by Lacho Franco RN; for anticoagulation; verified with dr jaime 13:45:08 Zero performed for pressure channel P1 13:45:17 Zero performed for pressure channel P1 13:45:20 Zero performed for pressure channel P1 13:46:06 Wire advanced across lesion. 13:47:23 The DIVINA RX 2.25 x 26 stent ([id number]) was advanced then removed because of failure to cross lesion 13:48:26 Versed 1 mg I.V. was administered by Lacho Franco RN; for sedation; 13:48:29 Fentanyl 50 mcg I.V. was administered by Lacho Franco RN; for sedation; 13:49:04 Inflate balloon Inflation number: 1 A EUPHORA 2.0 x 20 Balloon ([id number]) was prepped and advanced across the Prox LAD, then inflated to 13 ARNOLD for 0:10 (min:sec). 13:49:17 Inflation number: 2 The EUPHORA 2.0 x 20 Balloon ([id number]) was reinflated across the Prox LAD, to 13 ARNOLD for 0:10 (min:sec). 13:49:34 Balloon removed over the wire. 13:50:38 Place stent Inflation Number: 3 A DIVINA RX 2.25 x 26 stent ([id number]) was prepped and advanced across the Prox LAD. The stent was deployed at 13 ARNOLD for 0:10 (min:sec). 13:52:04 Stent catheter was removed intact over wire. 13:52:56 Wire redirected to Circ. 13:55:11 Wire advanced across lesion. 13:57:14 Place stent Inflation Number: 1 A DIVINA RX 3.5 x 22 stent ([id number]) was prepped and advanced across the Prox CX. The stent was deployed at 13 ARNOLD for 0:10 (min:sec). 13:58:31 Stent catheter was removed intact over wire. 13:58:32 Wire removed. 13:58:33 Guide catheter removed. 13:58:43 EXOSEAL 6Fr (EX600) opened to sterile field. 13:58:52 Sheath removed intact; hemostasis achieved with Exoseal to the Left Femoral artery. 13:58:54 Procedure ended.(Physican Out) 13:59:50 Fluoroscopy time 04.90 minutes. 13:59:59 Fluoroscopy dose: 181.39 mGy 13:59:59 Flurop Dose total: 181.39 14:00:02 Contrast amount:Isovue 300 74ml. 14:00:03 Sharps counted by scrub and verified by R.N. 14:00:05 Insertion/operative site no bleeding no hematoma. 14:00:08 Post-op/insertion site Left Femoral artery dressed using a 4 x 4 and Tegaderm. 14:00:14 Post left femerol artery:stable, soft, clean and dry 14:00:16 Post Procedure Pulses reassessed and unchanged 14:00:28 Post-procedure physical assessment completed. ASA score P 2 - A patient with mild systemic disease as per Joseph Jaime MD. 14:00:30 Post procedure rhythm: unchanged. 14:00:34 Estimated blood loss: 10 ml 14:00:35 Post procedure instruction explained to patient.Patient verbalizes understanding. 14:00:36 Patient needs reinforcement of post procedure teaching. 14:02:04 Procedure Complication : No complications 14:02:06 Vital chart was stopped 14:02:07 See physician's report for complete and final results. 14:02:09 Report given to Pre/Post Procedure Room. 14:02:12 Patient transfered to Pre/Post Procedure Room with Stretcher. 14:02:14 Full Disclosure recording stopped 14:02:14 Procedure ended. 14:02:18 End room use (Document Last) Intervention Summary Intervention Notes Time ActionType Lesion and Equipment Used Action# Pressure Duration Attributes 13:47:23 Discard DIVINA RX 2.25 x Stent 26 stent ([id number]) 13:49:04 Inflate Prox LAD EUPHORA 2.0 x 1 13 00:10 balloon 20 Balloon ([id number]) 13:49:17 Reinflate Prox LAD EUPHORA 2.0 x 2 13 00:10 balloon 20 Balloon ([id number]) 13:50:38 Place stent Prox LAD DIVINA RX 2.25 x 3 13 00:10 26 stent ([id number]) 13:57:14 Place stent Prox CX DIVINA RX 3.5 x 1 13 00:10 22 stent ([id number]) Device Usage Item Name Manufacture Quantity Catalog Number Hospital Part Current M inimal Lot# / Charge Number Stock Stock Serial# Code ACIST Syringe Acist 1 52218 070866 606998 739322 2 0 (33499) Medical Systems Inc Bag Decanter Microtek 1 464028 14033 628698 5 () Medical Inc. Medline Cath Medline 1 [id number] 892575 25975 796766 5 Pack ([id number]) ACIST Hand Acist 1 94192 489793 237808 662892 5 Control Medical (97328) Systems Inc ACIST Manifold Acist 1 21716 370803 226415 970679 5 (52162) Medical Systems Inc DIAGNOSTIC Cardinal 1 QA5921 574903 31113 929616 3 0 Multipack 5Fr Health catheter set (OU0793) Tegaderm 4 x 4 3M 1 1626W 749105 394116 279935 5 (1626W) DIAGNOSTIC [place] 1 177883 917319 282450 852858 3 0 WIRE .035 260cm J wire (420231) INFLATOR Merit Merit 1 ML9085 571309 666352 384146 1 5 Accurate Group (OU6911) GUIDE 6FR Cardinal 1 [id number] 685063 168097 081550 1 0 XBLAD 3.5 Health catheter ([id number]) SHEATH 6FR Terumo 1 WOW618 401768 597575 063885 4 0 [place] (GDW244) DIVINA RX 2.25 x Medtronic 1 [id number] 654268 1572052 372066 5 [id number] 26 stent ([id number]) EUPHORA 2.0 x Medtronic 1 [id number] 908810 644285 931665 5 [id number] 20 Balloon ([id number]) DIVINA RX 3.5 x Medtronic 1 [id number] 064985 1759306 760158 5 [id number] 22 stent ([id number]) EXOSEAL 6Fr Cardinal 1 EX600 260177 675917 067075 1 0 (EX600) Health CHOICE PT [place] 1 [id number] 581542 342280 402270 5 Extra Support Scientific 182cm wire ([id number]) Signature Audit [place] Stage Time Signature Unsigned Intra-Procedure 06/27/2018 Ritesh Pleitez RT(R) 2:02:37 PM RT(R) 06/27/2018 2:03:36 PM Intra-Procedure 06/27/2018 Ritesh Pleitez 2:06:36 PM RT(R) Signatures Monitor : Ritesh Pleitez RT Signature : Date : Time : [facility] [address] [place] [address]
[~2018-06-27 09:09] MED LIST changes: +ASPIRIN81 MG PO; +BETAPACE 80 MG80 MG PO; +OXYBUTYNIN CHLOR5 MG PO; +PLAVIX75 MG PO; +PRAVACHOL20 MG PO; +VITAMIN E200 UNI1 PO
[2018-06-27 09:42] VITALS: BP 153/71; Ht 165.1 cm; Wt 61.4 kg
[2018-06-27 10:01] LABS: BASOPHILS 0.4 % (0-2); CALC OSMOLALITY 282 mosm/kg (275-300); CALCIUM 8.7 mg/dL (8.5-10.1); CARBON DIOXIDE 27.1 mmol/L (21.0-32.0); CHLORIDE - SERUM 104 mmol/L (98-107); CREATININE - SERUM 0.6 mg/dL (0.6-1.3); EOSINOPHILS 2.4 % (0-7); GLUCOSE 83 mg/dL (74-106); HEMATOCRIT 38.7 % (36.0-48.0); HEMOGLOBIN 13.3 g/dL (12-16); IMMATURE GRANULOCYTES 0.4 % (0-5); LYMPHOCYTES 21.7 % (15-50); MCH 33.3 pg (26.0-34.0); MCHC 34.4 g/dL (31.0-37.0); MEAN PLATELET VOLUME 12.6 fL (7.4-10.4); MONOCYTES 10.3 % (2-11); NEUTROPHILS 64.8 % (40-80); POTASSIUM - SERUM 4.2 mmol/L (3.5-5.1); RBC 3.99 10x6/uL (4.00-5.40); RDW 13.5 % (11.5-14.5); SODIUM 142 mmol/L (136-145); UREA NITROGEN 14 mg/dL (7-18); WBC 5.4 10x3/uL (4.8-10.8); eGFR NON AFRICAN AMERICAN > 90 mL/min (90-120)
[2018-06-27 10:08] LABS: PLATELET COUNT 171 10x3/uL (130-400)
--- NOTE | 2018-06-27 14:15 | NUR ---
PT RECEIVED VIA STRETCHER FROM [employer] FOR RECOVERY. L GROIN W FEM STOP APPLIED BY [employer] STAFF FOR SMALL HEMATOMA. NO BLEEDING NOTED, SITE MARKED. PT INSTRUCTED TO KEEP HEAD ON PILLOW AND L LEG STRAIGHT, SHE VERBALIZED UNDERSTANDING. HR NSR RATE 60, BP 134/67, O2 SAT 99 ON 2L/NC. PT DENIES CHEST PAIN OR NAUSEA. CALL LIGHT IN REACH.
--- NOTE | 2018-06-27 14:30 | NUR ---
PT RESTING W EYES CLOSED, L GROIN W FEM STOP AT 180, NO BLEEDING OR ADDITIONAL SWELLING NOTED. PULSES PALPATED IN L FOOT, EXTREMITY WARM AND PINK. FAMILY AT BEDSIDE, VSS. CALL LIGHT IN REACH
--- NOTE | 2018-06-27 15:00 | NUR ---
PT RESTING QUIETLY, DENIES CHEST PAIN OR NEEDS. L GROIN W FEMSTOP STILL AT 180, NO BLEEDING OR ADDITIONAL SWELLING NOTED. FAMILY AT BEDSIDE, CALL LIGHT IN REACH.
--- NOTE | 2018-06-27 15:15 | NUR ---
PT RESTING QUIETLY, DENIES PAIN OR NEEDS. FEM STOP IN PLACE PRESSURE FLUCTUATED TO 160. NO BLEEDING OR ADDITIONA SWELLING TO SITE. CALL LIGHT IN REACH. PEDAL PULSE PALPABLE.
--- NOTE | 2018-06-27 15:32 | NUR ---
FEM STOP PRESSURE REDUCED TO 90, VSS. DENIES PAIN OR NAUSEA. NO BLEEDING NOTED. TOLERATING FLUIDS W/O NAUSEA.
--- NOTE | 2018-06-27 15:58 | NUR ---
FEM STOP PRESSURE REDUCED TO 30, NO BLEEDING OR ADDITIONAL SWELLING NOTED. R PEDAL PULSE PALPATED. SON AT BEDSIDE, DENIES PAIN OR NEEDS. CALL LIGHT IN REACH.
--- NOTE | 2018-06-27 16:29 | NUR ---
FEM STOP REMOVED, NO BLEEDING OR ADDITIONAL SWELLING NOTED. PEDAL PULSE WNL. VSS. VISITING W SON, DENIES PAIN OR NEEDS.
--- NOTE | 2018-06-27 17:00 | NUR ---
HOB ELEVATED SLIGHTLY, JELLO GIVEN PER REQUEST. L GROIN DRESSING CDI, NO BLEEDING OR SWELLING NOTED. HR PACED AT 61, BP 146/67. CALL LIGHT IN REACH, SON AT BEDSIDE.
--- NOTE | 2018-06-27 17:30 | NUR ---
PT RESTING COMFORTABLY, L GROIN DRESSING REMAINS CDI, NO BLEEDING OR HEMATOMA NOTED. VSS, CALL LIGHT IN REACH. DENIES NEEDS.
--- NOTE | 2018-06-27 17:40 | NUR ---
DISCHARGE INSTRUCTIONS REVIEWED W PT AND SON, BOTH VERBALIZED UNDERSTANDING. IV REMOVED W CATH INTACT, O2 AND MONITORS REMOVED. PT UP TO DRESS FOR DISCHARGE.
--- NOTE | 2018-06-27 17:58 | NUR ---
PT DISCHARGED VIA WC TO PRIVATE VEHICLE.
--- NOTE | 2018-06-28 18:15 | OP ---
PATIENT NAME: HONORIO OSORIO MEDICAL RECORD: [id number] :35 LOCATION:D.CAT ADMISSION DATE: SURGEON: RANDALL VELASQUEZ MD DATE OF OPERATION: 06/27/2018 DATE OF SERVICE: 06/27/2018 PROCEDURES: 1. PTCA stent LAD. 2. PTCA stent of the left circumflex. 3. Selective coronary angiography. DESCRIPTION OF PROCEDURE: After informed consent was obtained and after a detailed description of risks, benefits as well as alternative therapies, the patient elected to proceed with angiogram and angioplasty. The left femoral area was prepped and draped in normal sterile fashion. Left femoral artery was cannulated via modified Seldinger technique with placement of 6-Kyrgyz sheath. All catheters exchanged through this sheath. FINDINGS: The left anterior descending has a large diagonal system, is actually larger than the LAD itself with 95% stenosis. This was addressed with a 2.25 x 26 mm [place] stent. In the cranial views, looking at the LAD, the circumflex was noted to have a very eccentric 90% plaque, this was before the previously placed stent. This was not visible in the caudal views when the circ was intervened. We intervened on the circ with a 3.5 x 22 mm Zhang stent. Result was 0% residual stenosis. OVERALL IMPRESSION: Successful percutaneous transluminal coronary angioplasty stent of the left circumflex and left anterior descending, both going from 90-95% initial stenosis to 0% residual. TRANSINT:[id number] Voice Confirmation ID: [id number] DOCUMENT ID: [id number] RANDALL VELASQUEZ MD at 1815 CC: [id number] DICTATION DATE: 06/27/18 1610 FACILITIES PLANNER: 06/27/18 1722 DEP CLI 06/27/18 [address] [place] [address]
--- NOTE | 2018-06-28 18:15 | HP ---
PATIENT: HONORIO WHITAKER MEDICAL RECORD: [id number] ACCOUNT: [id number] LOCATION:[facility] : 35 ADMISSION DATE: 06/27/18 PCP: OSORIO HERNANDEZ DO HISTORY AND PHYSICAL EXAMINATION ADMITTING DIAGNOSES: 1. Angina. 2. Coronary artery disease. 3. Recent percutaneous transluminal coronary angioplasty stent of right coronary artery and left circumflex with severe disease of left anterior descending. HISTORY OF PRESENT ILLNESS: Mrs. Whitaker presents with unstable anginal symptomatology, found to have severe 3-vessel coronary artery disease, underwent successful PTCA stent of the RCA and left circumflex, now brought back for PTCA stent of the LAD. REVIEW OF SYSTEMS: The patient reports easy bruising but reports no swollen glands. The patient reports no fever, no night sweats, no significant weight gain, no significant weight loss. No significant exercise tolerance. The patient reports no dry eyes, no irritation, no vision change. Patient reports no difficulty hearing and no ear pain. Patient reports no frequent nose bleeds or nose and sinus problems. Patient reports on arm pain on exertion. No shortness of breath while lying down. No history of heart murmur. Patient reports no cough, no wheezing or coughing up blood. Patient reports no abdominal pain, no vomiting. Normal appetite. No diarrhea and not vomiting blood. No nausea and no constipation. Patient reports no incontinence. No difficulty urinating. No hematuria. No increased frequency. Patient reports no muscle aches. No weakness, no arthralgias, no back pain. No swelling of the extremities. Patient reports no abnormal mole, no jaundice, no rashes. Reports no loss of consciousness. No weakness and no numbness. No seizures, dizziness, or headaches. The patient reports no depression, no sleep disturbance, feeling safe in a relationship and no alcohol abuse. Patient reports on fatigue. Reports no runny nose or sinus pressure. No itching, no hives, and no frequent sneezing. PHYSICAL EXAMINATION: GENERAL APPEARANCE: Well-nourished, well-developed, appears stated age. Level of distress, comfortable. PSYCHIATRIC: Mental status, alert, normal affect. Orientation, oriented to time, place and person. EYES: Lids and conjunctiva, noninjected. No discharge, no pallor. ENT: Lips, teeth, gums, normal dentition. Oropharynx, no cyanosis, no pallor. NECK: Carotid arteries, bilateral normal upstroke, no bruits, no thrills. JUGULAR VEINS: No jugular venous pressure or distention. CERVICAL LYMPH NODES: Nontender, nonenlarged. THYROID: Not enlarged. Nontender. No nodules. LUNGS: Respiratory effort, unlabored. CHEST: Normal curvature. No thoracic deformity. No chest wall tenderness. Percussion, resonant. Auscultation, clear. No wheezes, no rales, no rhonchi. CARDIOVASCULAR: Precordial exam, nondisplaced. No heaves or pericardial thrills. Rate and rhythm, regular. Heart sounds, normal S1, normal S2. No S3, no gallop, no rub. Systolic murmur, not heard. Diastolic murmur, not heard. EXTREMITIES: No cyanosis, no edema. Peripheral pulses, full and equal in all extremities, except as noted. No bruits appreciated. HISTORY AND PHYSICAL [id number] YOUNG,VELRON M ABDOMEN: Soft, nondistended. Normal aorta. No bruit. Nontender. No masses. Liver, nontender, no hepatomegaly. Spleen, nontender, no splenomegaly. MUSCULOSKELETAL: No joint tenderness. No joint swelling. No erythema. NEUROLOGICAL: Normal gait, normal strength, normal tone. SKIN: Warm and dry. OVERALL IMPRESSION: Anginal symptomatology with significant disease of the left anterior descending. We will proceed with transcatheter revascularization of the left anterior descending. TRANSINT:[id number] Voice Confirmation ID: [id number] DOCUMENT ID: [id number] RANDALL VELASQUEZ MD at 1815 CC: [id number] DICTATION DATE: 06/27/18 1019 GLIDING PILOT INSTRUCTOR: 06/27/18 1031 DEP CLI 06/27/18 [address] [place] [address]
== END | disposition home or self-care (01) ==
LOC: D.CATH 06-26 11:00
PROVIDERS: Internal Medicine Interventional Cardiology
DX: I25.10 Atherosclerotic heart disease of native coronary artery without angina pectoris (principal)

== ENCOUNTER 2019-04-24 04:10 | Observation (INO) | payer MEDICARE ==
[~2019-04-24] VITALS: Ht 165.1 cm; Wt 63.6 kg
--- NOTE | ~2019-04-24 | HEMODYNAMI ---
PATIENT:HONORIO OSORIO MEDICAL RECORD: [id number] : 35 LOCATION[facility] [id number] ADMISSION DATE: 04/24/19 Generatedon:04/25/20198:23 Patient name: HONORIO OSORIO Patient #: [id number] SSN: [id number] : 1935 Date of study: 04/25/2019 Page: Of Hemodynamic Procedure Report Patient Data Patient Demographics Procedure consent was obtained First Name: HONORIO Gender: Female Last Name: JO : 1935 Middle Initial: M Age: 83 year(s) Patient #: [id number] Race: SSN: [id number] Additional ID: [id number] Contact details [address]: [address] [place] [address] State: [place] City: [place] Zip code: [address] Past Medical History History of disease Date Diagnosis Comments CAD Allergies Allergen Reaction Date Comments Reported Amoxicillin 06/19/2018 Other 06/20/2018 Amoxicillin allergy Other 06/27/2018 PCN, allergy Amoxicillin,Amelodipine, Other 04/25/2019 PCN, AMLODIPINE, allergy AMOXICILLIN Admission Admission Data Admission Date: 04/24/2019 Admission Time: 5:53 Room #: D.2117 Lab Results Lab Result Date: 04/25/2019 Lab Result Time: 0:00 Biochemistry Name Units Result Min Max BUN mg/dl 24 --(----)-* 7 18 Creatinine mg/dl 0.8 --(-*--)-- 0.6 1.3 eGFR ml/min 72 *-(----)-- 90 120 NONAFRICAN CBC Name Units Result Min Max Hematocrit % 37.6 *-(----)-- 42 54 Hemoglobin g/dl 12.3 *-(----)-- 13.5 17.5 Procedure Procedure Types Cath Procedure Diagnostic Procedure LHC LHC w/Coronaries Sedation Charges Moderate Sedation up to 15 minutes Procedure Description Procedure Date Procedure Date: 04/25/2019 Procedure Start Time: 8:05 Procedure End Time: 8:17 Procedure Staff Name Function Chema Laureano MD Performing Physician Cydney Servin RT Monitor Mona Goldsmith RT Scrub Lacho Franco RN Nurse Indication NSTEMI Procedure Data Cath Procedure Fluoroscopy Diagnostic fluoroscopy Total fluoroscopy Time: 1.5 time: 1.5 min min Diagnostic fluoroscopy Total fluoroscopy dose: 315 dose: 315 mGy mGy Contrast Material Contrast Material Type Amount (ml) Isovue 300 39 Entry Location Entry Primary Successful Side Size Upsize Upsize Entry Closure Succes sful Closure Location (Fr) 1 (Fr) 2 (Fr) Remarks Device Remarks Femoral Right 5 Fr Exoseal artery Estimated blood loss: 5 ml Diagnostic catheters Device Type Used For End Catheter Placement MULTIPACK JL 4.0 5Fr Left Coronary catheter Angiography MULTIPACK 3DRC 5Fr Right Coronary catheter Angiography MULTIPACK Pigtail 5 Fr LV Angiography catheter Procedure Complications No complications Procedure Medications Medication Administration Route Dosage Oxygen etCO2 Nasal cannula 2 l/min Lidocaine 2% added to field 20 Heparin Flush Bag added to field 2 bags (1000units/500ml NS) 0.9% NaCl I.V. 100 ml/hr Versed I.V. 1 mg Fentanyl I.V. 50 mcg Versed I.V. 1 mg Fentanyl I.V. 50 mcg Versed I.V. 1 mg Hemodynamics Rest HGB: 12.3 (g/dl) Heart Rate: 62 (bpm) Pressure Samples Time Site Value (mmHg) Purpose Heart Use Rate(bpm) 8:13 LV 168/3,11 Snapshot 60 8:14 AO 168/63(105) Pullback 60 8:14 LV 165/-3,16 Pullback 60 Gradients Valve Time Site 1 Site 2 Mean SEP/DFP Peak To Heart Use (mmHg) (sec/min) Peak Rate (mmHg) (bpm) Aortic 8:14 LV AO 0 7 0 60 165/-3,16 168/63(105) Calculations Valve P-P Mean Valve Index Valve Source Name Gradient Area Flow (cm2) Aortic 0 0 0 0 Snapshots Pre Cath Intra NCS Post Cath Vital Signs Time Heart Resp SPO2 etCO2 NIBP (mmHg) Rhythm Pain Sedation Rate (ipm) (%) (mmHg) Status Level (bpm) 7:53:53 60 12 100 34.5 190/91(155) NSR 0 (11) 10(A) , No pain 7:58:21 60 14 100 11.2 178/90(142) NSR 0 (11) 10(A) , No pain 8:02:50 60 14 100 2.2 164/81(135) NSR 0 (11) 10(A) , No pain 8:07:12 60 17 99 23.2 167/78(129) NSR 0 (11) 9(A) , No pain 8:11:34 60 15 98 20.2 150/77(119) NSR 0 (11) 9(A) , No pain 8:15:50 60 29 98 9.7 144/82(120) NSR 0 (11) 10(A) , No pain Medications Time Medication Route Dose Verified Delivered Reason Notes Effe ctiveness by by 7:53:06 Oxygen etCO2 2 Chema Buffie used for Nasal l/min Georgi Franco RN procedure cannula 7:53:14 Lidocaine 2% added 20ml Chema Chema for local to vial Georgi Laureano MD anesthetic field 7:53:20 Heparin Flush added 2 Chema Chema used for Bag to bags Georgi Laureano MD procedure (1000units/500ml field NS) 7:54:32 0.9% NaCl I.V. 100 Chema Buffie Per ml/hr Georgi Franco RN physician 8:00:57 Versed I.V. 1 mg Chema Buffie for Georgi Franco RN sedation 8:01:03 Fentanyl I.V. 50 Chema Buffie for mcg Georgi Franco RN sedation 8:06:01 Versed I.V. 1 mg Chema Buffie for Georgi Franco RN sedation 8:06:05 Fentanyl I.V. 50 Chema Buffie for mcg Georgi Franco RN sedation 8:13:39 Versed I.V. 1 mg Chema Buffie for Georgi Franco RN sedation Procedure Log Time Note 7:33:29 Informed consent obtained and on chart 7:33:50 Procedure Status Urgent Heart Cath (IP). 7:33:51 Time tracking: Regular hours (M-F 7:00 - 5:00) 7:33:54 Plan of Care:Hemodynamics will remain stable., Cardiac rhythm will remain stable., Comfort level will be maintained., Respiratory function will remain adequate., Patient/ family verbilizes understanding of procedure., Procedure tolerated without complication., Recovers from procedure without complications.. 7:33:59 Lacho Franco RN sent for patient. Start room use. 7:34:06 H&P Date Dictated: 04/25/2019 Within 30 days and on chart.. 7:34:27 Patient allergic to Other allergyPCN, AMLODIPINE, AMOXICILLIN 7:38:31 Risk of Mortality: .3 7:38:34 Risk of blood transfusion: 2.4 7:38:38 Risk of FRANCOIS: 1.7 7:39:24 Lab Result : BUN 24 mg/dl 7:39:24 Lab Result : eGFR NONAFRICAN 72 ml/min 7:39:24 Lab Result : Creatinine 0.8 mg/dl 7:39:24 Lab Result : Hemoglobin 12.3 g/dl 7:39:24 Lab Result : Hematocrit 37.6 % 7:41:21 Indication : NSTEMI 7:42:58 ACC Patient presents with Non-STEMI CCS Anginal Class 3--Marked limitation of physical activity, angina occurs with ordinary activity.. 7:43:05 Patient received from Med II to CCL 1 Alert and oriented. Tansferred to table in Supine position. 7:43:06 Warm blankets applied, and dinesh hugger turned on for patient comfort. 7:43:06 Correct patient and procedure confirmed by team. 7:43:07 ECG and BP/O2 sat monitors applied to patient. 7:52:41 Vital chart was started 7:52:42 Baseline sample Acquired. 7:52:53 Rhythm: sinus rhythm 7:52:56 Full Disclosure recording started 7:52:57 Pre-procedure instructions explained to patient. 7:52:57 Pre-op teaching completed and patient verbalized understanding. 7:52:59 Family in waiting room. 7:53:00 Patient NPO since Midnight. 7:53:06 Oxygen 2 l/min etCO2 Nasal cannula was administered by Lacho Franco RN; used for procedure; Verbal order read back and verified. 7:53:07 Is the patient allergic to Iodine/contrast media? No. 7:53:14 Lidocaine 2% 20ml vial added to field was administered by Chema Laureano MD; for local anesthetic; Verbal order read back and verified. 7:53:20 Heparin Flush Bag (1000units/500ml NS) 2 bags added to field was administered by Chema Laureano MD; used for procedure; Verbal order read back and verified. 7:53:27 Was the patient premedicated? No 7:53:33 Is patient on blood thinner?No 7:53:34 Patient diabetic? No. 7:53:39 Previous problem with sedation/anesthesia? No ? 7:53:42 Snore? No 7:53:43 Sleep apnea? No 7:53:44 Deviated septum? No 7:53:45 Opens mouth fully? Yes 7:53:52 Sticks out tongue? Yes 7:53:54 Airway obstruction? Yes ? 7:54:20 Dentures? Yes ? 7:54:32 0.9% NaCl 100 ml/hr I.V. was administered by Lacho Franco RN; Per physician; Verbal order read back and verified. 7:55:24 Pre procedure: right dorsailis pedis pulse 2+ Normal; easily identifiable; not easily obliterated 7:55:28 Pre procedure: left dorsailis pedis pulse 2+ Normal; easily identifiable; not easily obliterated 7:55:37 Patient pain scale 0/10 ?. 7:55:44 IV patent on arrival in right forearm with 0.9% NaCl at [facility]. 7:55:47 Lab results completed and on chart. 7:58:14 Right groin area was prepped with chlora-prep and draped in sterile fashion 7:58:15 Alarms reviewed by R. N. 7:58:15 Sharps counted by scrub and verified by R.N. 7:58:25 Physician arrived 7:58:25 --------ALL STOP TIME OUT------ 7:58:26 Final Timeout: patient, procedure, and site verified with staff and physician. All members of the team are in agreement. 7:58:27 Right groin site verified by team. 7:58:32 Fire Safety Assessment: A--An alcohol-based skin anteseptic being used preoperatively., C--Open oxygen or nitrous oxide is being used., D--An ESU, laser, or fiber-optic light is being used. 7:58:37 Physical assessment completed. ASA score P 2 - A patient with mild systemic disease as per Chema Laureano MD. 7:59:13 2) 60-89 Mildly reduced kidney function, and other findings (as for stage 1) point to kidney disease. 7:59:52 Maximum allowable contrast dose (3.7 X eGFR X 0.75)199 ml. 7:59:59 Sedation plan: IV Moderate Sedation Medication:Versed, Fentanyl 8:00:57 Versed 1 mg I.V. was administered by Lacho Franco RN; for sedation; Verbal order read back and verified. 8:01:03 Fentanyl 50 mcg I.V. was administered by Lacho Franco RN; for sedation; Verbal order read back and verified. 8:02:51 Use device set Femoral Dx 8:02:52 ACIST Syringe (69661) opened to sterile field. 8:02:52 Bag Decanter (2002S) opened to sterile field. 8:02:52 Medline Cath Pack ([id number]) opened to sterile field. 8:02:54 ACIST Hand Control (41895) opened to sterile field. 8:02:55 ACIST Manifold (90845) opened to sterile field. 8:02:55 DIAGNOSTIC Multipack 5Fr catheter set (NO0471) opened to sterile field. 8:02:56 Tegaderm 4 x 4 (1626W) opened to sterile field. 8:02:57 SHEATH 5FR [place] (PRL717) opened to sterile field. 8:02:57 EMERALD Guide Wire (781-979) opened to sterile field. 8:04:14 Procedure started. 8:05:16 Local anesthetic to right femoral artery with Lidocaine 2% by Chema Laureano MD.INITIAL ACCESS ONLY 8:05:36 A 5 Fr sheath was inserted into the Right Femoral artery 8:06:01 Versed 1 mg I.V. was administered by Lacho Franco RN; for sedation; Verbal order read back and verified. 8:06:05 Fentanyl 50 mcg I.V. was administered by Lacho Franco RN; for sedation; Verbal order read back and verified. 8:08:55 A MULTIPACK JL 4.0 5Fr catheter was advanced over the wire and used for Left Coronary Angiography. 8:09:00 LCA angiography performed. 8:09:12 Injector settings: Ml/sec: 3, Volume: 6, 8:10:13 Catheter removed. 8:10:47 A MULTIPACK 3DRC 5Fr catheter was advanced over the wire and used for Right Coronary Angiography. 8:11:39 RCA angiography performed. 8:12:28 Catheter removed. 8:12:44 A MULTIPACK Pigtail 5 Fr catheter was advanced over the wire and used for LV Angiography. 8:12:50 ACCDominant side:Left 8:12:50 Zero performed for pressure channel P1 8:13:39 Versed 1 mg I.V. was administered by Lacho Franco RN; for sedation; Verbal order read back and verified. 8:13:58 LV hemodynamics recorded. 8:14:00 LV gram done using BEARDEN 8:14:03 Injector settings: Ml/sec: 5, Volume: 15, 8:14:47 Catheter removed. 8:14:55 EXOSEAL 5Fr (EX500) opened to sterile field. 8:15:37 Sheath removed intact; hemostasis achieved with Exoseal to the Right Femoral artery. 8:15:43 Procedure ended.(Physican Out) 8:16:01 Fluoroscopy time 01.50 minutes. 8:16:08 Flurop Dose total: 315 8:16:08 Fluoroscopy dose: 315 mGy 8:16:20 Dose Area Product 41581 mGy/cm. 8:16:30 Contrast amount:Isovue 300 39ml. 8:16:43 Maximum allowable dose exceeded? No. 8:16:44 Sharps counted by scrub and verified by R.N. 8:16:46 Insertion/operative site no bleeding no hematoma. 8:16:48 Post-op/insertion site Right Femoral artery dressed using a 4 x 4 and Tegaderm. 8:16:50 Post Procedure Pulses reassessed and unchanged 8:16:53 Post procedure rhythm: unchanged. 8:16:56 Estimated blood loss: 5 ml 8:16:58 Post procedure instruction explained to patient.Patient verbalizes understanding. 8:16:59 Patient needs reinforcement of post procedure teaching. 8:17:06 Procedure type changed to Cath procedure, Diagnostic procedure, LHC, [facility] w/Coronaries, Sedation Charges, Moderate Sedation up to 15 minutes 8:17:08 Procedure and supply charges have been captured, reviewed, submitted and are correct. 8:17:12 Procedure Complication : No complications 8:17:14 Vital chart was stopped 8:17:29 [facility] Findings: MVD- MD will discuss options w/ pt 8:17:31 Operative report dictated upon procedure completion. 8:17:32 See physician's report for complete and final results. 8:17:34 Report given to Med II. 8:17:41 Patient transfered to Med II with Stretcher. 8:17:43 Procedure ended. 8:17:43 Full Disclosure recording stopped 8:17:48 End room use (Document Last) Device Usage Item Name Manufacture Quantity Catalog Hospital Part Current Minimal L ot# / Number Charge Number Stock Stock Serial# Code ACIST Acist 1 23604 264132 604970 [id number] 20 Syringe Medical (27508) Systems Inc Bag Microtek 1 2001S 401765 11185 102056 5 Decanter Medical Inc. () Medline Medline 1 [id number] 115366 68999 423838 5 Cath Pack ([id number]) ACIST Hand Acist 1 00867 859957 208339 860970 5 Control Medical (14703) Systems Inc ACIST Acist 1 42579 401632 160172 968976 5 Manifold Medical (55727) Systems Inc DIAGNOSTIC Cardinal 1 [id number] 183876 44926 551268 30 Multipack Health 5Fr catheter set (BC2119) Tegaderm 4 3M 1 1626W 567071 331798 215418 5 x 4 (1626W) SHEATH 5FR Terumo 1 GMW079 778782 225959 311420 5 [place] (WVL624) EMERALD Cardinal 1 502-455 601111 706569 142871 5 Guide Wire [facility] (502-455) MULTIPACK Cardinal 1 284738 5 JL 4.0 5Fr Health catheter MULTIPACK Cardinal 1 859682 5 3DRC 5Fr Health catheter MULTIPACK Cardinal 1 803822 5 Pigtail 5 Health Fr catheter EXOSEAL 5Fr Cardinal 1 EX500 551009 571463 874775 10 (EX500) Health Signature Audit [place] Stage Time Signature Unsigned Intra-Procedure 04/25/2019 Cydney Servin 8:18:23 AM RT(R) Intra-Procedure 04/25/2019 Lacho Franco RN 8:22:43 AM Intra-Procedure 04/25/2019 Chema Laureano MD 8:23:10 AM [facility] [address] [place] [address]
--- NOTE | 2019-04-24 04:25 | NUR ---
PT VOIDED ON BEDPAN X 1 ASSIST.
[2019-04-24] MEDS ORDERED: ANTIVERT12.5 MG PO (04:32)
[2019-04-24 05:13] LABS: BASOPHILS 0.2 % (0-2); EOSINOPHILS 0.9 % (0-7); HEMATOCRIT 38.1 % (36.0-48.0); HEMOGLOBIN 12.3 g/dL (12-16); IMMATURE GRANULOCYTES 0.2 % (0-5); LYMPHOCYTES 17.8 % (15-50); MCH 31.9 pg (26.0-34.0); MCHC 32.3 g/dL (31.0-37.0); MCV 98.7 fL (80.0-100.0); MEAN PLATELET VOLUME 12.3 fL (7.4-10.4); MONOCYTES 9.9 % (2-11); PLATELET COUNT 150 10x3/uL (130-400); RBC 3.86 10x6/uL (4.00-5.40); RDW 13.8 % (11.5-14.5); WBC 4.5 10x3/uL (4.8-10.8)
[2019-04-24 05:20] LABS: CALC OSMOLALITY 286 mosm/kg (275-300); CALCIUM 8.7 mg/dL (8.5-10.1); CARBON DIOXIDE 28.5 mmol/L (21.0-32.0); CHLORIDE - SERUM 107 mmol/L (98-107); CREATININE - SERUM 0.8 mg/dL (0.6-1.3); GLUCOSE 95 mg/dL (74-106); POTASSIUM - SERUM 4.1 mmol/L (3.5-5.1); SODIUM 142 mmol/L (136-145); UREA NITROGEN 24 mg/dL (7-18); eGFR NON AFRICAN AMERICAN 72 mL/min (90-120)
[2019-04-24 05:36] LABS: APTT 26.8 SECONDS (22.8-39.4); INR 1.14 (0.85-1.17); PROTIME 14.1 SECONDS (11.6-15.0)
--- NOTE | 2019-04-24 05:40 | NUR ---
PT VOIDED IN BEDPAN X 1 ASSIST. PT REPOSITIONED IN BED. 2 WARM BLANKETS PROVIDED. NO SIGNS DISTRESS NOTED. PT DENIES SOB, DENIES CP. RESPIRATIONS EVEN AND UNLABORED. WILL CONTINUE TO MONITOR.
[2019-04-24 05:42] LABS: ALBUMIN 3.3 g/dL (3.4-5.0); ALKALINE PHOSPHATASE 73 U/L (46-116); ALT (SGPT) 30 U/L (10-68); BILIRUBIN - TOTAL 0.76 mg/dL (0.2-1.3); CKMB 1.3 U/L (0.0-3.6); CREATINE KINASE 50 UL (21-215); MAGNESIUM - SERUM 2.1 mg/dL (1.8-2.4); PROTEIN - SERUM 6.1 g/dL (6.4-8.2)
[2019-04-24 05:46] LABS: TROPONIN-I 0.085 ng/mL (0.000-0.060)
--- NOTE | 2019-04-24 06:35 | NUR ---
RECIEVED REPORT FROM [facility], PT ARRIVED BY STRETCHER. PT AAOX3 NO S/S OF DISTRES. PT DENIES CP AT THIS TIME. FAMILY AT BEDSIDE. PROVIDED PT WITH FRESH LINEN AND GOWN. REPORT WILL TRANFERED TO INCOMING RN.
[2019-04-24 08:00] VITALS: BP 123/87
[2019-04-24 08:02] VITALS: BP 115/73; BMI 23.3
[2019-04-24 12:00] VITALS: BP 169/71
[2019-04-24 12:03] VITALS: Ht 165.1 cm; Wt 63.6 kg
[2019-04-24 12:09] LABS: CHOL - HDL RATIO 2.5 ratio (2.3-4.1); LDL-HDL RATIO 1.4 ratio (1.5-3.5)
[2019-04-24 12:09] LABS: BASOPHILS 0.2 % (0-2); EOSINOPHILS 0.6 % (0-7); HEMATOCRIT 37.6 % (36.0-48.0); HEMOGLOBIN 12.3 g/dL (12-16); IMMATURE GRANULOCYTES 0.2 % (0-5); LYMPHOCYTES 16.7 % (15-50); MCH 32.1 pg (26.0-34.0); MCHC 32.7 g/dL (31.0-37.0); MCV 98.2 fL (80.0-100.0); MEAN PLATELET VOLUME 12.3 fL (7.4-10.4); MONOCYTES 9.6 % (2-11); NEUTROPHILS 72.7 % (40-80); PLATELET COUNT 140 10x3/uL (130-400); RBC 3.83 10x6/uL (4.00-5.40); RDW 13.7 % (11.5-14.5); WBC 5.3 10x3/uL (4.8-10.8)
--- NOTE | 2019-04-24 15:34 | NUR ---
IV RESTARTED TO RIGHT ARM WITH 22 GAUGE CATH X 1 STICK AND FLUSED WITH NS. LINE IS PATENT.
--- NOTE | 2019-04-24 15:36 | NUR ---
C CANCELLED TILL AM.
[2019-04-24 16:00] VITALS: BP 146/67
--- NOTE | 2019-04-24 19:00 | NUR ---
RECEIVED BEDSIDE REPORT. PATIENT IS ALERT AND ORIENTED, RESTING COMFORTABLY IN BED. RESPIRATIONS ARE EVEN AND UNLABORED. NO S/S OF DISTRESS. NO C/O PAIN. CALL LIGHT WITHIN REACH. WILL CPOC.
[2019-04-24 20:21] VITALS: BP 112/57
[2019-04-25 00:13] VITALS: BP 129/73
--- NOTE | 2019-04-25 02:45 | NUR ---
PATIENT APPEARS TO BE SLEEPING. RESPIRATIONS ARE EVEN AND UNLABORED. NO S/S OF DISTRESS. CALL LIGHT WITHIN REACH. WILL CPOC.
[2019-04-25 04:45] VITALS: BP 160/77
[2019-04-25 05:50] LABS: BASOPHILS 0.3 % (0-2); EOSINOPHILS 1.8 % (0-7); HEMATOCRIT 40.5 % (36.0-48.0); HEMOGLOBIN 13.5 g/dL (12-16); IMMATURE GRANULOCYTES 0.2 % (0-5); MCH 32.8 pg (26.0-34.0); MCHC 33.3 g/dL (31.0-37.0); MCV 98.3 fL (80.0-100.0); MEAN PLATELET VOLUME 12.4 fL (7.4-10.4); MONOCYTES 12.1 % (2-11); NEUTROPHILS 63.6 % (40-80); PLATELET COUNT 157 10x3/uL (130-400); RBC 4.12 10x6/uL (4.00-5.40); RDW 13.6 % (11.5-14.5); WBC 6.2 10x3/uL (4.8-10.8)
[2019-04-25 06:10] LABS: ANION GAP 9.2 mmol/L (8-16); CALCIUM 8.7 mg/dL (8.5-10.1); CARBON DIOXIDE 27.5 mmol/L (21.0-32.0); CREATININE - SERUM 0.8 mg/dL (0.6-1.3); MAGNESIUM - SERUM 2.1 mg/dL (1.8-2.4); POTASSIUM - SERUM 3.7 mmol/L (3.5-5.1)
--- NOTE | 2019-04-25 07:41 | NUR ---
PRE-OPS GIVEN. TO CLINICAL LABORATORY AIDE BED BED.
--- NOTE | 2019-04-25 08:40 | NUR ---
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 VS WNL. RIGHT GROIN STABLE WITHOUT BLEEDING OR HEMATOMA NOTED.
[2019-04-25 09:36] VITALS: BP 181/89
--- NOTE | 2019-04-25 10:09 | NUR ---
ECHO COMPLETED AT BS.
--- NOTE | 2019-04-25 10:23 | NUR ---
BED REST UP. GROIN STABLE.
[2019-04-25 13:17] VITALS: BP 121/69
[2019-04-25] MEDS ORDERED: ISOSORBIDE MONO30 M1 PO (14:30)
--- NOTE | 2019-04-25 15:17 | NUR ---
IV AND TELEMETRY DCD. DC PLANS GIVEN TO PATIENT AND SON. UNDERSTANDING VOICED. ESCORTED TO CAR BY W/C.
--- NOTE | 2019-04-26 09:34 | MORECARE ---
CASE MANAGEMENT DISCHARGE SUMMARY PATIENT: HONORIO OSORIO UNIT: [id number] ADM DATE: 04/24/19 AGE: 83 : 35 SEX: F ROOM/BED: D.9760 AUTHOR: LIO PEREYRA PHYSICIAN: REFERRING PHYSICIAN: HAWA ALVARADO MD DATE OF SERVICE: 04/26/19 Discharge Plan Patient Name: HONORIO OSORIO [facility] : 1935 Planned Disposition: Home Anticipated Discharge Date: 04/25/19 Discharge Date: 04/25/2019 Expected LOS: 1 Initial Reviewer: [email or web address] Initial Review Date: 04/26/2019 Generated: 04/26/19 10:34 am Coverage Notice Reviewer: [email or web address] Darcie Grande Notice Issued Date-Time: 04/24/2019 15:37 Notice Type: Medicare Outpatient Observation Notice Notice Delivered To: Patient Relationship to Patient: Self Network Security Engineer Name: Delivery Method: HAND - Hand Delivered Missy Days: Prior Verbal Notification: Recipient Understood Notice: Yes Recipient Signature: Yes Med Rec Note Co-signed by Attending: Coverage Notice Comment: Patient Name: HONORIO OSORIO Page [phone] at 0934 All edits/amendments must be made on the electronic document DICTATION DATE: 04/26/19933 SKYLIGHTS ASSEMBLER: CARLI 04/26/19933 RPT#: [id number] DC DATE:04/25/19 STATUS: DIS IN [facility] [address] [place] [address] END OF REPORT
== END 2019-04-25 15:18 | disposition home or self-care (01) ==
LOC: D.ER 04:10 → OBSVTIME 05:53 → D.M2 05:53
PROVIDERS: Family Medicine; Internal Medicine Cardiovascular Disease; ADMIT Family Medicine Adult Medicine; ATTEND Family Medicine Adult Medicine
DX: I21.4 Non-ST elevation (NSTEMI) myocardial infarction (principal); I10 Essential (primary) hypertension; Z95.0 Presence of cardiac pacemaker; N17.9 Acute kidney failure, unspecified; F41.9 Anxiety disorder, unspecified; I25.110 Atherosclerotic heart disease of native coronary artery with unstable angina pectoris; I48.91 Unspecified atrial fibrillation

== ENCOUNTER → 2020-11-26 12:46 | Outpatient (CLI) | payer MEDICARE ==
[2020-05-01 18:47] VITALS: BMI 22.5
[~2020-11-26 12:46] MED LIST changes: +ANTIVERT12.5 MG PO; +ASPIRIN325 MG PO; +ATARAX 25 MG TA25 MG PO; +ISOSORBIDE MONO30 M1 PO; +OMNICEF300 MG PO
== END | disposition home or self-care (01) ==
LOC: D.HCCECHO 12:46
PROVIDERS: ATTEND Internal Medicine Cardiovascular Disease
DX: I10 Essential (primary) hypertension (principal)